=== PATIENT | female | born 1980 | race Caucasian/White ===

== ENCOUNTER 2018-03-23 18:24 | Emergency (ER) | payer MEDICAID, SELFPAY ==
[2018-03-23 18:25] VITALS: BP 142/72; PULSE 88; RESP 16; TEMP 36; O2SAT 98; BMI 36.5
[2018-03-23] MEDS: Metoclopramide 10 MG/2 ML Vial IV (19:10)
[2018-03-23] MEDS: 0.9% Normal Saline 1,000 ML 999 ML IV (19:10)
[2018-03-23] MEDS: Ketorolac 30 MG/ML Syringe IV (19:10)
[2018-03-23] MEDS: DiphenhydrAMINE 50 MG/ML Syringe IV (19:10)
--- NOTE | 2018-03-23 19:20 | RAD_ITS ---
STUDY: X-RAY - LUMBAR SPINE REASON FOR EXAM: Female, 37 years old. Low back pain TECHNIQUE: 3 view(s) of the lumbar spine were obtained. COMPARISON: 2010 FINDINGS: Pedicle screw fusion surgery has been placed at L4-L5 and S1 with laminectomy. Normal lumbar lordosis. There is no substantial scoliosis. There is a normal alignment of the vertebrae from L1 to L5. There has been surgical stabilization of a pars defect and grade 1 spondylolisthesis at L5/S1 Normal vertebral bodies and endplates. There is multi-level degenerative disc disease with multi-level disc space narrowing. There is no demonstrated fracture. The soft tissue structures are unremarkable. RAD/Lumbar Spine 2 or 3 Views IMPRESSION: Degenerative and postsurgical changes of the spine, as detailed above. Electronically Signed: Fuad Wilder MD at 19:33 EST , Service support ,
--- NOTE | 2018-03-23 19:42 | ED.DCSUM_ITS ---
- ER Visit Summary Date of Service: 03/23/18 Chief Complaint: Back pain History of Present Illness: The patient is a [address] Dennis. She reports that she has chronic lower back pain. Worsened today approximate 4 PM. She describes it is a sensation of pressure and muscle spasms. States pain started at worst 9-10 currently. Is worsened by movement. Is been unrelieved by her baclofen. She denies any numbness, tingling, or weakness that is new. No problems with her bowels or her bladder. No groin numbness. No recent trauma. No fall, MVA, or change in activity. She denies any fever or chills. Physical Examination: Vitals: Stable. Afebrile. General: A&O x 3. NAD. Cardiovascular exam: Regular rate and rhythm, no murmur, rub or gallop. Respiratory exam: Clear to auscultation bilaterally. No wheezes or stridor. Abdominal exam: Soft, nontender, nondistended, normal bowel sounds. No peritoneal signs. Back: Diffuse moderate tenderness to palpation over the lumbar spine and the paraspinous musculature in the lumbar region. No point tenderness. Negative str aight leg bilaterally. 5/5 DF, PF, EHL bilaterally. Normal sensation to light touch throughout. Extremity: No clubbing, cyanosis, or edema. Test Results: LS spine x-rays show her hardware to be intact. There is no acute disease. Emergency Department Course and Treatment: An [facility] report was obtained which show she had one prescription for opiates in the past year. She was treated with Toradol, Reglan, and Benadryl IV. She was given Percocet p.o. She feels much improved. Treatment Plan: Patient be discharged prescription for 10 Percocet. Instructed to follow-up with Dr. Mariano as soon as possible. Return to the emergency department for any worsening symptoms. Disposition: To home in improved and stable condition. Impression: 1. Acute on chronic back pain. This note was generated with [employer] dictation software. It may contain incorrect words, spelling, and punctuation that were not noted in review of the chart prior to signing ED Disposition - Plan for ED Patient: Disposition: Home or Assisted Living Instructions: ED Spasm Back No Trauma Prescriptions: Oxycodone HCl/Acetaminophen [Percocet 5/325] 1 tablet PO Q6H PRN PRN 3 Days #8 tablet PRN Reason: Pain Referrals: Homar Mariano [NON-STAFF] - As soon as possible
[2018-03-23] MEDS: oxyCODONE 5 MG Tablet 10 MG PO (20:07)
[2018-03-23 20:22] VITALS: PULSE 80; RESP 15; O2SAT 98
== END 2018-03-23 20:23 | disposition home or self-care (01) ==
LOC: ED 19:44
PROVIDERS: Emergency Provider Emergency Medicine; Family Provider Family Medicine; PCP Family Medicine
DX: M54.5 Low back pain (principal); G89.29 Other chronic pain; F43.10 Post-traumatic stress disorder, unspecified; F41.9 Anxiety disorder, unspecified; Z72.0 Tobacco use; Z79.899 Other long term (current) drug therapy
CPT/HCPCS: 72100; 96361; 96374; 96375; 99284; J7030; A4216

== ENCOUNTER 2018-03-25 20:04 | Observation (INO) | payer MEDICAID, SELFPAY ==
[2018-03-25 20:05] VITALS: BP 120/79; PULSE 85; RESP 17; TEMP 36.1; O2SAT 100; BMI 36.5
[2018-03-25] MEDS: 0.9% Normal Saline 1,000 ML 1000 ML IV (21:20)
[2018-03-25] MEDS: HYDROmorphone 1 MG/ML Syringe 0.5 MG IV (21:21)
[2018-03-25] MEDS: Ketorolac 30 MG/ML Syringe IV (21:21)
[2018-03-25] MEDS: Ondansetron 4 MG/2 ML Vial IV (21:21)
[2018-03-25 21:23] LABS: Absolute Lymphocyte Count 2.06 X10^3/ul (0.83-4.51); Absolute Neutrophil Count 2.1 X10^3/uL (2.0-7.7); Basophil# 0.04 X10^3/uL; Basophil% 0.8 % (0-1); Eosinophil# 0.34 X10^3/uL; Eosinophils% 6.7 % (0-5); Hematocrit 40.3 % (37-47); Hemoglobin 14.5 g/dl (12.0-15.0); Lymphocyte # 2.06 X10^3/ul (4.0); Lymphocyte % 40.9 % (19-41); Mean Corpuscular Hgb 30.4 pg (27.0-32.0); Mean Corpuscular Volume 84.5 fL (81-99); Mean Platelet Vol. 9.2 fl (6.2-12.0); Monocyte# 0.52 X10^3/uL; Monocyte% 10.3 % (0-10); Neutrophil # 2.07 X10^3/uL (2.7-7.7); Neutrophil % 41.1 % (47-70); Platelet Count 197 K/mm3 (150-450); RBC Distribution Width CV 13.2 % (11.6-14.6); RBC Distribution Width SD 39.9 fl (35.1-43.9); Red Blood Count 4.77 M/mm3 (4.2-5.4)
[2018-03-25 21:27] LABS: POSITIVE COUNT NO; POSITIVE DIFFERENTIAL NO; POSITIVE MORPHOLOGY NO
[2018-03-25 21:37] LABS: Anion Gap 10 (5-15); BUN 10 mg/dL (7-18); BUN/Creat Ratio 12.2 RATIO (10-20); CPK Total, Creatine Kinase 136 U/L (26-192); Calcium,Total 9.1 mg/dL (8.5-10.1); Chloride 107 mmol/L (98-107); Creatinine, Serum 0.82 mg/dL (0.55-1.02); EST Glomerular Filtration Rate 84 mL/min (>60); Est Glom Filt Rate - Afr Amer 102 mL/min (>60); Glucose 89 mg/dL (74-106); Potassium 4.1 mmol/L (3.5-5.1); Sodium Level 143 mmol/L (136-145)
[2018-03-25] MEDS: diazePAM 5 MG Tablet PO ×2 (22:42→23:13)
[2018-03-25] MEDS: HYDROmorphone 0.5 MG/0.5 ML SYRINGE IV (22:42)
--- NOTE | 2018-03-25 22:51 | ED.RN ---
2139 ALERTED THAT THE PT NEEDED TO USE THE BATHROOM,WENT TO HELP PT TO THE BATHROOM AND SHE STATED THAT I ALREADY PISSED THE BED.OBTAIN BATH WIPES, SCRUB PAPER PANTS AND A NEW SHEET.PT VERBALIZED THAT SHE WAS VERY EMBARRASSED AND THAT SHE DID NOT WANT TO MOVE. PT'S MOTHER STARTED TO ASSIST THE PT AFTER HER SPASM PASSED.PT STATED HOW EMBARRASSED SHE WAS.MOTHER STATED,I HAVE TOUCHED YOUR PEE BEFORE.MOTHER HELPED THE PT CLEAN UP SELF. PT MOTHER REQUESTED XXL PANTS.PAPER SCRUBS BROUGHT TO MOTHER.MD AWARE OF PT LOOSING VOIDING IN THE BED.
--- NOTE | 2018-03-25 23:29 | ED.RN ---
2300 checked on pt's confort and she stated that she was still having pain and i don't feel any better. md aware.
[2018-03-26] MEDS: Ondansetron 4 MG/2 ML Vial IV ×3 (00:28→17:33)
[2018-03-26] MEDS: Orphenadrine 60 MG/2 ML Ampul IM (00:28)
[2018-03-26] MEDS: HYDROmorphone 0.5 MG/0.5 ML SYRINGE IV ×3 (00:30→16:19)
--- NOTE | 2018-03-26 00:58 | ED.RN ---
0015 PT INCONTIENT OF URINE.PT SAT ON CHAIR AND CLEANED SELF UP THIS NURSE CHANGED THE BED LINEN.PT RADHA WITHOUT DISTRESS, OTHER THAN TO SAYI'M AM SO EMBARRASSED. MD AWARE OF INCONTINENCE AGAIN.
--- NOTE | 2018-03-26 01:46 | ED.DCSUM_ITS ---
- ER Visit Summary Date of Service: 03/26/18 Chief Complaint: Body cramps and spasm History of Present Illness: The patient is a 37 F with history of chronic back pain and muscle spasms. She is noted worsened muscle spasms of the past several days. She was seen here in the ED 2 days ago. Patient states the spasms and cramps were significantly worse tonight. She did urinate on herself when 1 of her spasm spells was resolving, then urinated again when trying to get to the bathroom. Patient has had prior paralysis and had back surgery 4 years ago. She has been following with pain management. She gets these episodes of severe spasms that usually resolve after a round of medication and she is able to go home. Patient has seen multiple neurologist. She states she had a MRI of her brain but did not show any lesions consistent with MS. She does tend to get a migraine before the onset of these episodes. Physical Examination: Vital signs are unremarkable. Patient is lying on her right side. She is tearful. Head neck examination unremarkable. Heart is regular rate and rhythm. Lungs sounds clear. Abdomen is soft and nontender. Back examination reveals palpable spasm in the lumbar paraspinals. Extremity examination reveals frequent bouts of spasms to her legs. When she gets the spasms she will get flexion at her knees along with dorsiflexion of her ankles and her toes will spread wide. Between episodes she has good strength. She has 2+ bilateral patellar reflexes. Test Results: CBC and chemistry studies normal. Magnesium normal. CK normal. Emergency Department Course and Treatment: Patient was initially given Dilaudid, Toradol, Zofran, and IV fluids. Due to continued pain she received Dilaudid and Valium. She did note slight improvement in the spasms with Valium and was given a second dose for a total of 10 mg. On repeat evaluation she was still having frequent episodes of spasm, although they were not as frequent as previously. She is given another dose of Norflex, Zofran, and Dilaudid. Repeat evaluation at this time, patient is lying on her back and resting much more comfortably. She still gets bouts of spasm but not nearly as frequently as when first evaluated. She has had 2 additional episodes here in the emergency room where she urinated on herself. Patient states that she had no sensation that she had to urinate. Nursing staff documents that the patient had told her that she was having spasms and did not want to get up to the bathroom when she went. Rectal tone is checked at this time and is normal. She has good patellar reflexes. At this time patient is still having bouts of spasm and is not able to go home. She has been in the emergency room for nearly 6 hours with repeated rounds of medication. I will speak with hospitalist regarding overnight observation for further medication and possible MRI of her back in the morning. Treatment Plan: [] Disposition: Admit Impression: Intractable muscle spasms This note was generated with [employer] dictation software. It may contain incorrect words, spelling, and punctuation that were not noted in review of the chart prior to signing ED Disposition - Plan for ED Patient: Referrals: Mukund Dennis MD [Primary Care Provider] -
--- NOTE | 2018-03-26 02:21 | HP.PCM_ITS ---
Problem List (1) Intractable back pain Status: Acute (2) Urinary incontinence Status: Acute Qualifiers: Urinary Incontinence type: unspecified incontinence Qualified Code(s): R32 - Unspecified urinary incontinence (3) Chronic back pain Status: Chronic Qualifiers: Back pain location: low back pain Back pain laterality: unspecified Sciatica presence: unspecified whether sciatica present Qualified Code(s): M54.5 - Low back pain; G89.29 - Other chronic pain (4) Neuropathy Status: Chronic (5) GERD (gastroesophageal reflux disease) Status: Chronic (6) ADHD Status: Chronic Qualifiers: Attention deficit-hyperactivity disorder type: unspecified Qualified Code(s): F90.9 - Attention-deficit hyperactivity disorder, unspecified type (7) Obesity (BMI 30-39.9) Status: Chronic History of Present Illness Date of Admission: 03/26/18 Chief Complaint: Intractable back pain, muscle spasms The patient is a 37 y/o F w/ PMHx: Chronic Back Pain secondary to history of remote fall 4 years ago prior w/ BL LE paraplegia w/ transfer to [facility] w/ surgery with hardware lumbar region with ambulation following w/ last MRI 2 years prior w/ neuropathy, GERD, ADD, Obesity seen 03/23/18 in the ED with more severe lumbar back pain at that time with increased lumbar pressure and muscle spasms, worsened by movement, unrelieved by her usual baclofen regimen with no paresthesias or new weaknesses and at that time no bowel or bladder changes with referral to pain management at the spine center who now represents to the [facility] ED on 03/26/18 with history of ongoing similar muscle spasms, lumbar discomfort and since last evaluation 4 episodes of urinary incontinence with again no extremity weakness, normal reflexes and normal rectal tone. Plain film of the lumbar spine 03/23/18 with degenerative and postsurgical changes with no acute findings. Work- up in the ED included T 96.8, heart rate 88, BP 120/79, respiratory rate 16, 98% on room air, CBC with WBC 5, hemoglobin 14.5, platelet 197 without left shift, unremarkable BMP, magnesium 2, total creatinine kinase 136. In the ED patient administered normal saline, Norflex, Zofran, Toradol, Dilaudid 0.5 mg IV x3, Valium 5 mg p.o. x2 with some improvement but ongoing discomfort and occasional spasms although lessened in severity. Past Medical History Past Medical History (Chronic Problems): Chronic Problems Chronic back pain (Chronic) Neuropathy (Chronic) GERD (gastroesophageal reflux disease) (Chronic) ADHD (Chronic) Obesity (BMI 30-39.9) (Chronic) Allergies acetaminophen [From Vicodin] Allergy (Verified 03/25/18 20:05) Anaphylaxis hydrocodone bitartrate [From Vicodin] Allergy (Verified 03/25/18 20:05) Anaphylaxis latex Allergy (Verified 03/25/18 20:05) Anaphylaxis morphine Allergy (Verified 03/25/18 20:05) Chest tightness CANNOT BREATH prednisone Allergy (Verified 03/25/18 20:05) Anaphylaxis fluoxetine HCl [From Prozac] Adverse Reaction (Verified 03/25/18 20:05) Other SUICIDAL IDEATIONS tramadol Adverse Reaction (Verified 03/25/18 20:05) Upset Stomach venlafaxine HCl [From Effexor] Adverse Reaction (Verified 03/25/18 20:05) Other SEIZURE Home Medications: Ambulatory Orders Medication Instructions Recorded Ranitidine [Zantac] 150 mg PO BID 05/29/16 Amitriptyline HCl 25 mg PO QHS 07/04/16 Baclofen [Lioresal] 10 mg PO TID PRN PRN 10/20/16 Diclofenac Sodium [Diclofenac 100 mg PO BID 10/20/16 Sodium ER] Methylphenidate HCl [Concerta] 18 mg PO DAILY 03/23/18 Pregabalin [Lyrica] 75 mg PO BID 03/23/18 Multivitamin with Minerals 1 each PO DAILY 03/25/18 [Multiple Vitamin] Surgical History: - - Hernia repair x4, cholecystectomy, lumbar back surgery with fusion and hardware, right wrist cyst removal, left foot cyst removal, hysterectomy with bilateral salpingo-oophorectomy, lateral tubal ligation, . Psychiatric History: Attn. deficit disorder [employer] History: therapeutic , - - History of cervical cancer status post hysterectomy with bilateral salpingo-oophorectomy. Lives: With Family - Patient currently living with her mother. Smoking Status: Current every day smoker - Currently smoking 1/4 ppd, prior was up to 2 ppd. Tobacco Use: Cigarettes Alcohol: None Drugs: None - *Family History Maternal History Items: - - Patient denies any marked maternal family history including heart disease, diabetes or cancer. Paternal History Items: - - Patient notes a paternal family history of cancer with history of heavy tobacco and alcohol usage concurrently, past. Review of Systems Constitutional: Reports: Malaise, Weakness, Fatigue. Denies: Chills, Fever, Weight Change HEENT: Denies: Head Aches, Sinus Congestion, Sinus Drainage Cardiovascular: Denies: Chest Pain, Palpitations Respiratory: Denies: Cough, Shortness of breath at rest, Sputum production Gastrointestinal: Denies: Abdominal Pain, Nausea, Vomiting Genitourinary: Denies: Dysuria Musculoskeletal: Reports: Back Pain, Leg Pain, - - Muscle spasms.. Denies: Joint Pain, Joint Tenderness Skin: Denies: Rash, Wounds Neurological: Denies: Numbness, Tingling, Focal weakness Psychiatric: Reports: - - ADD.. Denies: Anxiety, Depression, Homicidal Ideations, Suicidal Ideations Hematologic/ Lymphatic: Denies: Easy Bruising, Easy Bleeding VTE Information - Inpt Only VTE Present on Admission: No VTE Mechan Device Prophylaxis: SCD's VTE Pharm Prophylaxis ordered?: Yes Patient Problems: Active and Suspected Problems Intractable back pain (Acute) Urinary incontinence (Acute) Subjective: Laying in ED bed, fatigued, uncomfortable appearance, occasional muscle spasms ongoing during examination. Objective: Physical Examination: General: awake, alert, oriented x 3 and cooperative, laying in the ED bed, intermittently uncomfortable, ongoing intermittent spasms. Skin: normal color, turgor, no icterus, cyanosis. HEENT: AT/NC, EOMI, PERRLA, moderately dry MM, no carotid bruits or JVD noted. Lungs: CTA bilaterally, moderate effort, mild decrease BL bases, no rales, ronchi or wheezing. Heart: Regular rate and rhythm; no gallop, rub audible. Abdomen: soft, obese, NTTP, ND, normal BS, no HSM; her habitus makes examination difficult. Extremities: no cyanosis, clubbing, or edema, discomfort with palpation of the bilateral lumbar paraspinous regions, no obvious muscle spasms upon palpation of the lower extremities at that time. Neurological: patient awake, alert, oriented x 3; cognitive function intact; pupils equally reactive to light and accomodation; cranial nerves II-XII grossly normal, moving all 4 extremities, no focal deficits, strength moderately to severely globally decreased secondary to acute presentation. Psychiatric: affect appears fatigued, stressed, no acute evidence of depressive or anxiety feelings. - Physical Exam Vital Signs Temp Pulse Resp BP Pulse Ox 97.0 F L 85 17 120/79 100 03/25/18 20:05 03/25/18 20:05 03/25/18 20:05 03/25/18 20:05 03/25/18 20:05 Oxygen Delivery Method Room Air Weight: 240 lb Body Mass Index (BMI) 36.5 Laboratory Tests Past 24 Hrs 03/25/18 03/25/18 03/25/18 21:10 21:10 21:10 WBC 5.0 RBC 4.77 Hgb 14.5 Hct 40.3 MCV 84.5 MCH 30.4 MCHC 36.0 RDW 13.2 RDW Differential 39.9 Plt Count 197 MPV 9.2 Immature Gran % (Auto) 0.200 Neut % (Auto) 41.1 L Lymph % (Auto) 40.9 [place] % (Auto) 10.3 H Eos % (Auto) 6.7 H Baso % (Auto) 0.8 Absolute Neuts (auto) 2.1 Absolute Lymphs (auto) 2.06 Total Counted Not Reportable Sodium 143 Potassium 4.1 Chloride 107 Carbon Dioxide 26.0 Anion Gap 10 BUN 10 Creatinine 0.82 Estim Creat Clear Calc 96.60 Est GFR (MDRD) Af Amer 102 Est GFR (MDRD) Non-Af 84 BUN/Creatinine Ratio 12.2 Glucose 89 Calcium 9.1 Magnesium 2.0 Total Creatine Kinase 136 Assessment/Plan All Active Problems Intractable back pain (Acute) Urinary incontinence (Acute) Ovarian cyst (Acute) The patient is a 37 y/o F w/ PMHx: Chronic Back Pain secondary to history of remote fall 4 years ago prior w/ BL LE paraplegia w/ transfer to [facility] w/ surgery with hardware lumbar region with ambulation following w/ last MRI 2 years prior w/ neuropathy, GERD, ADD, Obesity seen 03/23/18 in the ED with more severe lumbar back pain at that time with increased lumbar pressure and muscle spasms, worsened by movement, unrelieved by her usual baclofen regimen with no paresthesias or new weaknesses and at that time no bowel or bladder changes with referral to pain management at the spine center who now represents to the [facility] ED on 03/26/18 with history of ongoing similar muscle spasms, lumbar discomfort and since last evaluation 4 episodes of urinary incontinence. (1) Acute on Chronic Intractable Lumbar Back Pain, Muscle Spasms w/ New Onset Urinary Incontinence w/ Chronic Neuropathy: Plain film of the lumbar spine 03/23/18 with degenerative and postsurgical changes with no acute findings. Will admit to MS, maintain on fall precautions, frequent positioning, po/IV pain regimen, flexeril, home baclofen and Lyrica regimen, scheduled Toradol, plan AM MRI lumbar spine, anti-emetics, bowel regimen. Will consult PT and OT for evaluation. (2) ADD: Continue home Concerta regimen. (3) Obesity: Weight loss and lifestyle changes encouraged. (4) GERD: Continue home ranitidine regimen. (5) Tobacco Abuse: Encouraged cessation, inpatient consultation per RT, NR if desired. (6) DVT Prophylaxis: SCDs, lovenox. Code Visit OBSV E&M: [id number] Initial observation care L3
[2018-03-26 02:42] VITALS: BP 112/62; PULSE 74; RESP 18; O2SAT 98
[2018-03-26 03:06] VITALS: BMI 38.2
[2018-03-26 03:09] VITALS: BMI 38.3
[2018-03-26 03:19] VITALS: BP 132/73; PULSE 70; RESP 18; TEMP 36.6; O2SAT 98
[2018-03-26] MEDS: Ketorolac 30 MG/ML Syringe IV ×3 (05:22→21:42)
--- NOTE | 2018-03-26 05:55 | MRI_ITS ---
STUDY: MRI LUMBAR SPINE WITH AND WITHOUT CONTRAST REASON FOR EXAM: Female, 37 years old. Low back pain. Incontinence. Muscle spasms. TECHNIQUE: Standardized fat and water weighted pulse sequences were obtained in the sagittal and axial planes. Gadavist 10 IV was administered for the contrast portion of the examination. COMPARISON: 07/10/2016. FINDINGS: T11-T12: (Sagittal only). Normal endplates. Normal disc height, hydration and morphology. No ventral extradural defect. Normal central canal and bilateral intervertebral neural foramina. T12-L1: (Sagittal only). Normal endplates. Normal disc height, hydration and morphology. No ventral extradural defect. Normal central canal and bilateral intervertebral neural foramina. Normal lumbar lordosis. There is no substantial scoliosis. Normal conus medullaris that terminates at the lower T12 vertebral body level. L1-2: Normal endplates. Normal disc height, hydration and morphology. Normal bilateral facet joints. Normal central canal and bilateral lateral recesses. Normal bilateral intervertebral neural foramina. L2-3: Normal endplates. Normal disc height, hydration and morphology. Normal bilateral facet joints. Normal central canal and bilateral lateral recesses. Normal bilateral intervertebral neural foramina. L3-4: Normal endplates. Normal disc height, hydration and morphology. Normal bilateral facet joints. Normal central canal and bilateral lateral recesses. Normal bilateral intervertebral neural foramina. L4-5: Normal endplates. Mild disc space height narrowing. Pedicular screws and rods from previous posterior decompression and fusion. Postsurgical absence of the spinous processes and lamina. Normal central canal and bilateral intervertebral neural foramina. L5-S1: Mild Modic type II degenerative vertebral marrow fatty changes underneath the vertebral endplates. Moderately pronounced disc space height narrowing. Grade 1 anterolisthesis of L5 on S1. Pedicular screws and rods from previous posterior decompression and fusion. Normal central canal and bilateral intervertebral neural foramina. No enhancing lesions intradural lesion extradurally. Normal visualized sacral ala. Normal visualized paraspinous soft tissue structures. MRI/Spine Lumbar W/WO Contrast IMPRESSION: 1. No MRI evidence of lumbar extruded disc fragment, spinal stenosis or nerve root displacement. 2. Grade 1 anterolisthesis of L5 on S1 with moderately pronounced disc space height narrowing. 3. Postsurgical decompression and fusion using pedicular screws and rods from L4 down to S1. 4. No interval change when compared to 07/10/2016. Electronically Signed: Edwar Gtz MD at 10:27 EST , Service support ,
[2018-03-26 06:20] LABS: Absolute Lymphocyte Count 0.97 X10^3/ul (0.83-4.51); Absolute Neutrophil Count 2.9 X10^3/uL (2.0-7.7); Basophil# 0.01 X10^3/uL; Basophil% 0.2 % (0-1); Eosinophil# 0.09 X10^3/uL; Hematocrit 37.7 % (37-47); Hemoglobin 12.4 g/dl (12.0-15.0); Lymphocyte # 0.97 X10^3/ul (4.0); Lymphocyte % 21.8 % (19-41); Mean Corp Hgb Conc 32.9 g/gl (32-36); Mean Corpuscular Hgb 28.4 pg (27.0-32.0); Mean Corpuscular Volume 86.3 fL (81-99); Mean Platelet Vol. 9.3 fl (6.2-12.0); Monocyte# 0.45 X10^3/uL; Monocyte% 10.1 % (0-10); Neutrophil # 2.92 X10^3/uL (2.7-7.7); Neutrophil % 65.9 % (47-70); Platelet Count 173 K/mm3 (150-450); RBC Distribution Width CV 13.1 % (11.6-14.6); RBC Distribution Width SD 40.1 fl (35.1-43.9); Red Blood Count 4.37 M/mm3 (4.2-5.4); White Blood Count 4.4 K/mm3 (4.4-11.0)
[2018-03-26 06:21] LABS: POSITIVE COUNT NO; POSITIVE DIFFERENTIAL NO; POSITIVE MORPHOLOGY NO
[2018-03-26 06:43] LABS: Anion Gap 8 (5-15); BUN 9 mg/dL (7-18); BUN/Creat Ratio 10.9 RATIO (10-20); Calcium,Total 8.2 mg/dL (8.5-10.1); Chloride 110 mmol/L (98-107); Creatinine, Serum 0.82 mg/dL (0.55-1.02); EST Glomerular Filtration Rate 84 mL/min (>60); Est Glom Filt Rate - Afr Amer 102 mL/min (>60); Estimated Creatinine Clearance 93.12 ml/min; Glucose 75 mg/dL (74-106); Potassium 3.7 mmol/L (3.5-5.1); Sodium Level 143 mmol/L (136-145)
[2018-03-26 07:27] VITALS: O2SAT 96
[2018-03-26 09:00] VITALS: BP 109/63; PULSE 69; RESP 18; TEMP 36.8; O2SAT 98
[2018-03-26] MEDS: Enoxaparin 40 MG/0.4 ML Syringe SC (09:33)
[2018-03-26] MEDS: Famotidine 20 MG Tablet PO ×2 (09:34→21:41)
[2018-03-26] MEDS: 0.9% NaCl Peripheral Flush Adult/Peds IV ×5 (09:35→21:47)
[2018-03-26] MEDS: Pregabalin 75 MG Capsule PO ×2 (09:48→21:41)
[2018-03-26] MEDS: oxyCODONE 5 MG Tablet PO (11:08)
[2018-03-26] MEDS: Baclofen 10 MG Tablet PO (11:08)
[2018-03-26] MEDS: 0.9% Normal Saline 1,000 ML 125 ML IV (11:09)
--- NOTE | 2018-03-26 12:45 | NURSING ---
PT RESTING QUIETLY IN BED, EYES CLOSED, RESP EASY
--- NOTE | 2018-03-26 12:57 | CHAPLAIN ---
Type of Pastoral Visit _x__ Initial Visit ___ Follow-up Visit ___ On-call Visit ___ General Patient Visit ___ Spiritual Assessment ___ Family Conference ___ Bereavement ___ Rapid Response ___ Code Blue ___ Other (describe below) Pastoral Care Referral From _x__ Patient ___ Family ___ Nurse ___ Physician ___ [employer] Water Plant Operator ___ Admission Discharge Rn ___ Other (describe below) Sacrament/Intervention _x__ Active listening ___ Anointing ___ Sikh ___ Bereavement ___ Communion ___ Ariana exploration ___ ___ Life review _x__ Prayer ___ Reconciliation ___ Sacrament of Sick ___ Supportive presence ___ Wedding ___ Other (describe below) Pastoral Comments patient says she has had pain for 4 years and hopes that someone can get to the bottom of issue; pt says while she is in hospital she misses her three children who are young teens now
--- NOTE | 2018-03-26 12:59 | PCM.PN.HOSP ---
Patient Problems: Active and Suspected Problems Intractable back pain (Acute) Urinary incontinence (Acute) Subjective: Patient seen and examined. She was admitted with a complaint of intractable lower back pain and new onset bladder and bowel incontinence. Patient has a history of chronic back pain due to a remote fall about 4 years ago which resulted in bilateral lower extremity paraplegia and she has had surgery with placement of hardware in the lumbar region. Started having intractable lumbar pressure and spasms as well as pain which is unrelieved by usual baclofen. He was seen in the ED on 03/23/2018 with the symptoms but had no new onset weakness or paresthesias or any bowel or bladder changes at that time. She was therefore referred to pain management at the spine center then. She presented again on 03/26/2018 with history of same intractable pain and ongoing symptoms of muscle spasms and lumbar discomfort. She had normal rectal tone on admission and normal reflexes and no lower extremity weakness. X-rays of the lumbar spine which have been done on 03/23/2018 showed degenerative and postsurgical changes with no acute findings. She was admitted for intractable back pain and new onset bowel and bladder incontinence. Patient seen after she had MRI this morning. She still complained of spasms in her lower extremities and was still having bowel and bladder incontinence. She had weakness has been progressive and she did not have any increased paresthesia in her lower extremities. She denied any fever or chills, palpitations, chest or abdominal pain. Review of systems otherwise negative. Labs and vitals reviewed. Vitals/I&O's: Vital Signs Temp Pulse Resp BP Pulse Ox 98.3 F 69 18 109/63 98 03/26/18 09:00 03/26/18 09:00 03/26/18 09:00 03/26/18 09:00 03/26/18 09:00 Oxygen Delivery Method Room Air Weight: 244 lb 4.8 oz Body Mass Index (BMI) 38.2 Intake and Output for Last 24 Hours 03/24/18 03/25/18 03/26/18 23:59 23:59 23:59 Intake Total 1464 / 1464 Balance 1464 / 1464 General: Alert, Oriented x3, Cooperative, - - looked uncomfortable due to the LE spasms HEENT: Atraumatic, PERRLA, EOMI, Normocephalic Oral: Moist Mucosa Neck: Supple, No JVD, Negative Carotid Bruits Lungs: Clear to auscultation, Normal air movement, No rhonchi, No wheeze, No rales Cardiovascular: Regular rate, Regular Rhythm, Normal S1, Normal S2, No murmurs Abdomen: Bowel Sounds Present, Soft, Non Tender, Non-Distended, No Hepato-splenomegaly Extremities: No clubbing, No cyanosis, No edema, No Calf Tenderness Skin: No rashes, No breakdown Musculoskeletal: No Tenderness to Palpation of Joints or Extremities, No Muscle Wasting Lymphatic: No Cervical, Supraclavicular, or Inguinal Adenopathy Neurological: Cranial nerves II-XII grossly intact, - - severe spams of LE muscles, power 4/5 in LEs, internal rotation of right foot. Psych/Mental Status: Normal Affect, Appropriate, Alert and oriented to time, place, person, mood and affect Laboratory Results 03/25/18 21:10: WBC 5.0, RBC 4.77, Hgb 14.5, Hct 40.3, MCV 84.5, MCH 30.4, MCHC 36.0, RDW 13.2, RDW Differential 39.9, Plt Count 197, MPV 9.2, Immature Gran % (Auto) 0.200, Neut % (Auto) 41.1 L, Lymph % (Auto) 40.9, [place] % (Auto) 10.3 H, Eos % (Auto) 6.7 H, Baso % (Auto) 0.8, Absolute Neuts (auto) 2.1, Absolute Lymphs (auto) 2.06, Total Counted Not Reportable 03/25/18 21:10: Sodium 143, Potassium 4.1, Chloride 107, Carbon Dioxide 26.0, Anion Gap 10, BUN 10, Creatinine 0.82, Estim Creat Clear Calc 96.60, Est GFR (MDRD) Af Amer 102, Est GFR (MDRD) Non-Af 84, BUN/Creatinine Ratio 12.2, Glucose 89, Calcium 9.1, Total Creatine Kinase 136 03/25/18 21:10: Magnesium 2.0 03/26/18 05:44: Sodium 143, Potassium 3.7, Chloride 110 H, Carbon Dioxide 25.0, Anion Gap 8, BUN 9, Creatinine 0.82, Estim Creat Clear Calc 93.12, Est GFR (MDRD) Af Amer 102, Est GFR (MDRD) Non-Af 84, BUN/Creatinine Ratio 10.9, Glucose 75, Calcium 8.2 L 03/26/18 05:44: WBC 4.4, RBC 4.37, Hgb 12.4, Hct 37.7, MCV 86.3, MCH 28.4, MCHC 32.9, RDW 13.1, RDW Differential 40.1, Plt Count 173, MPV 9.3, Immature Gran % (Auto) 0.000, Neut % (Auto) 65.9, Lymph % (Auto) 21.8, Creek % (Auto) 10.1 H, Eos % (Auto) 2.0, Baso % (Auto) 0.2, Absolute Neuts (auto) 2.9, Absolute Lymphs (auto) 0.97, Total Counted Not Reportable Diagnostic Data Lumbar Spine MRI 03/26/18 05:55 IMPRESSION: 1. No MRI evidence of lumbar extruded disc fragment, spinal stenosis or nerve root displacement. 2. Grade 1 anterolisthesis of L5 on S1 with moderately pronounced disc space height narrowing. 3. Postsurgical decompression and fusion using pedicular screws and rods from L4 down to S1. 4. No interval change when compared to 07/10/2016. Electronically Signed: Edwar Gtz MD at 10:27 EST , Service support , Current Medications Al Hydroxide/Mg Hydroxide (Mylanta Ii) 30 ml PO Q6H PRN PRN PRN Reason: Gastric burning Amitriptyline HCl (Elavil) 25 mg PO QHS [facility] Baclofen (Lioresal) 10 mg PO TID PRN PRN PRN Reason: SPASMS Last Admin: 03/26/18 11:08 Dose: 10 mg Cyclobenzaprine HCl (Flexeril) 10 mg PO TID [facility] Last Admin: 03/26/18 05:20 Dose: 10 mg Enoxaparin Sodium (Lovenox) 40 mg SC DAILY@1000 [facility] Last Admin: 03/26/18 09:33 Dose: 40 mg Famotidine (Pepcid) 20 mg PO BID [facility] Last Admin: 03/26/18 09:34 Dose: 20 mg Hydralazine HCl (Apresoline Iv) 10 mg IV Q4H PRN PRN PRN Reason: SBP > 160 Hydromorphone HCl (Dilaudid Inj) 0.5 - 1 mg IV Q3H PRN PRN PRN Reason: SEVERE PAIN (6-10/10) Last Admin: 03/26/18 09:34 Dose: 0.5 mg Sodium Chloride () 1,000 mls @ 125 mls/hr IV .Q8H ARJUN Last Admin: 03/26/18 11:09 Dose: 125 mls/hr Ketorolac Tromethamine (Toradol) 30 mg IV Q8 [facility] Stop: 03/27/18 14:01 Last Admin: 03/26/18 05:22 Dose: 30 mg Lorazepam (Ativan) 1 mg IV Q4H PRN PRN PRN Reason: severe muscle spasms Magnesium Hydroxide (Milk Of Magnesia) 30 ml PO DAILY PRN PRN PRN Reason: Constipation Nicotine (Nicoderm Cq (Pbkc)) 14 mg TRANSDERM. DAILY [facility] Last Admin: 03/26/18 09:34 Dose: 14 mg Ondansetron HCl (Zofran) 4 mg IV Q8H PRN PRN PRN Reason: NAUSEA/VOMITING Last Admin: 03/26/18 09:35 Dose: 4 mg Oxycodone HCl (Oxyir) 5 - 10 mg PO Q4H PRN PRN PRN Reason: SEVERE PAIN (6-10/10) Last Admin: 03/26/18 11:08 Dose: 10 mg Pregabalin (Lyrica) 75 mg PO BID [facility] Last Admin: 03/26/18 09:48 Dose: 75 mg Sodium Chloride () 5 - 15 ml IV UD PRN PRN Reason: SALINE FLUSH Last Admin: 03/26/18 09:35 Dose: 10 ml Temazepam (Restoril) 15 mg PO QHS PRN PRN PRN Reason: insomnia Medical Necessity - Tobacco Use Smoking Status: Current every day smoker Tobacco Use: Cigarettes Assessment/Plan All Active Problems Intractable back pain (Acute) Urinary incontinence (Acute) Ovarian cyst (Acute) 1. Acute on chronic back pain with new onset bladder and bowel incontinence still having back pain and bladder and bowel incontinence. She is also having spasms on baclofen xray showed degenerative and postsurgical changes with no acute findings. fall precautions on flexeril, baclofen and lyrica MRI showed no evidence of lumbar extruded disc fragment, spinal stenosis or nerve root displacement. Grade 1 anterolisthesis of L5 on S1 with moderately pronounced disc space height narrowing, post surgical decompression and fusion using pedicular screws and rods down from L4 down to S1. will get neurology consult in light of new onset bladder and bowel incontinence PT/OT on board 2. ADD: on concerta 3. GERD: on ranitidine. 4. Nicotine abuse: encourage cessation. 5. DVT prophylaxis: lovenox Code Visit OBSV E&M: [id number] Subsequent observation care L3
--- NOTE | 2018-03-26 13:05 | PN_ITS ---
Patient Problems: Active and Suspected Problems Intractable back pain (Acute) Urinary incontinence (Acute) Subjective: Patient seen and examined. She was admitted with a complaint of intractable lower back pain and new onset bladder and bowel incontinence. Patient has a history of chronic back pain due to a remote fall about 4 years ago which resulted in bilateral lower extremity paraplegia and she has had surgery with placement of hardware in the lumbar region. Started having intractable lumbar pressure and spasms as well as pain which is unrelieved by usual baclofen. He was seen in the ED on 03/23/2018 with the symptoms but had no new onset weakness or paresthesias or any bowel or bladder changes at that time. She was therefore referred to pain management at the spine center then. She presented again on 03/26/2018 with history of same intractable pain and ongoing symptoms of muscle spasms and lumbar discomfort. She had normal rectal tone on admission and normal reflexes and no lower extremity weakness. X-rays of the lumbar spine which have been done on 03/23/2018 showed degenerative and postsurgical changes w ith no acute findings. She was admitted for intractable back pain and new onset bowel and bladder incontinence. Patient seen after she had MRI this morning. She still complained of spasms in her lower extremities and was still having bowel and bladder incontinence. She had weakness has been progressive and she did not have any increased paresthesia in her lower extremities. She denied any fever or chills, palpitations, chest or abdominal pain. Review of systems otherwise negative. Labs and vitals reviewed. Vitals/I&O's: Vital Signs Temp Pulse Resp BP Pulse Ox 98.3 F 69 18 109/63 98 03/26/18 09:00 03/26/18 09:00 03/26/18 09:00 03/26/18 09:00 03/26/18 09:00 Oxygen Delivery Method Room Air Weight: 244 lb 4.8 oz Body Mass Index (BMI) 38.2 Intake and Output for Last 24 Hours 03/24/18 03/25/18 03/26/18 23:59 23:59 23:59 Intake Total 1464 / 1464 Balance 1464 / 1464 General: Alert, Oriented x3, Cooperative, - - looked uncomfortable due to the LE spasms HEENT: Atraumatic, PERRLA, EOMI, Normocephalic Oral: Moist Mucosa Neck: Supple, No JVD, Negative Carotid Bruits Lungs: Clear to auscultation, Normal air movement, No rhonchi, No wheeze, No rales Cardiovascular: Regular rate, Regular Rhythm, Normal S1, Normal S2, No murmurs Abdomen: Bowel Sounds Present, Soft, Non Tender, Non-Distended, No Hepato- splenomegaly Extremities: No clubbing, No cyanosis, No edema, No Calf Tenderness Skin: No rashes, No breakdown Musculoskeletal: No Tenderness to Palpation of Joints or Extremities, No Muscle Wasting Lymphatic: No Cervical, Supraclavicular, or Inguinal Adenopathy Neurological: Cranial nerves II-XII grossly intact, - - severe spams of LE muscles, power 4/5 in LEs, internal rotation of right foot. Psych/Mental Status: Normal Affect, Appropriate, Alert and oriented to time, place, person, mood and affect Laboratory Results 03/25/18 21:10: WBC 5.0, RBC 4.77, Hgb 14.5, Hct 40.3, MCV 84.5, MCH 30.4, MCHC 36.0, RDW 13.2, RDW Differential 39.9, Plt Count 197, MPV 9.2, Immature Gran % (Auto) 0.200, Neut % (Auto) 41.1 L, Lymph % (Auto) 40.9, [place] % (Auto) 10.3 H, Eos % (Auto) 6.7 H, Baso % (Auto) 0.8, Absolute Neuts (auto) 2.1, Absolute Lymphs (auto) 2.06, Total Counted Not Reportable 03/25/18 21:10: Sodium 143, Potassium 4.1, Chloride 107, Carbon Dioxide 26.0, Anion Gap 10, BUN 10, Creatinine 0.82, Estim Creat Clear Calc 96.60, Est GFR (MDRD) Af Amer 102, Est GFR (MDRD) Non-Af 84, BUN/Creatinine Ratio 12.2, Glucose 89, Calcium 9.1, Total Creatine Kinase 136 03/25/18 21:10: Magnesium 2.0 03/26/18 05:44: Sodium 143, Potassium 3.7, Chloride 110 H, Carbon Dioxide 25.0, Anion Gap 8, BUN 9, Creatinine 0.82, Estim Creat Clear Calc 93.12, Est GFR (MDRD) Af Amer 102, Est GFR (MDRD) Non-Af 84, BUN/Creatinine Ratio 10.9, Glucose 75, Calcium 8.2 L 03/26/18 05:44: WBC 4.4, RBC 4.37, Hgb 12.4, Hct 37.7, MCV 86.3, MCH 28.4, MCHC 32.9, RDW 13.1, RDW Differential 40.1, Plt Count 173, MPV 9.3, Immature Gran % (Auto) 0.000, Neut % (Auto) 65.9, Lymph % (Auto) 21.8, [place] % (Auto) 10.1 H, Eos % (Auto) 2.0, Baso % (Auto) 0.2, Absolute Neuts (auto) 2.9, Absolute Lymphs (auto) 0.97, Total Counted Not Reportable Diagnostic Data Lumbar Spine MRI 03/26/18 05:55 IMPRESSION: 1. No MRI evidence of lumbar extruded disc fragment, spinal stenosis or nerve root displacement. 2. Grade 1 anterolisthesis of L5 on S1 with moderately pronounced disc space height narrowing. 3. Postsurgical decompression and fusion using pedicular screws and rods from L4 down to S1. 4. No interval change when compared to 07/10/2016. Electronically Signed: Edwar Gtz MD at 10:27 EST , Service support , Current Medications Al Hydroxide/Mg Hydroxide (Mylanta Ii) 30 ml PO Q6H PRN PRN PRN Reason: Gastric burning Amitriptyline HCl (Elavil) 25 mg PO QHS [facility] Baclofen (Lioresal) 10 mg PO TID PRN PRN PRN Reason: SPASMS Last Admin: 03/26/18 11:08 Dose: 10 mg Cyclobenzaprine HCl (Flexeril) 10 mg PO TID [facility] Last Admin: 03/26/18 05:20 Dose: 10 mg Enoxaparin Sodium (Lovenox) 40 mg SC DAILY@1000 [facility] Last Admin: 03/26/18 09:33 Dose: 40 mg Famotidine (Pepcid) 20 mg PO BID [facility] Last Admin: 03/26/18 09:34 Dose: 20 mg Hydralazine HCl (Apresoline Iv) 10 mg IV Q4H PRN PRN PRN Reason: SBP > 160 Hydromorphone HCl (Dilaudid Inj) 0.5 - 1 mg IV Q3H PRN PRN PRN Reason: SEVERE PAIN (6-10/10) Last Admin: 03/26/18 09:34 Dose: 0.5 mg Sodium Chloride () 1,000 mls @ 125 mls/hr IV .Q8H ARJUN Last Admin: 03/26/18 11:09 Dose: 125 mls/hr Ketorolac Tromethamine (Toradol) 30 mg IV Q8 [facility] Stop: 03/27/18 14:01 Last Admin: 03/26/18 05:22 Dose: 30 mg Lorazepam (Ativan) 1 mg IV Q4H PRN PRN PRN Reason: severe muscle spasms Magnesium Hydroxide (Milk Of Magnesia) 30 ml PO DAILY PRN PRN PRN Reason: Constipation Nicotine (Nicoderm Cq (Pbkc)) 14 mg TRANSDERM. DAILY [facility] Last Admin: 03/26/18 09:34 Dose: 14 mg Ondansetron HCl (Zofran) 4 mg IV Q8H PRN PRN PRN Reason: NAUSEA/VOMITING Last Admin: 03/26/18 09:35 Dose: 4 mg Oxycodone HCl (Oxyir) 5 - 10 mg PO Q4H PRN PRN PRN Reason: SEVERE PAIN (6-10/10) Last Admin: 03/26/18 11:08 Dose: 10 mg Pregabalin (Lyrica) 75 mg PO BID [facility] Last Admin: 03/26/18 09:48 Dose: 75 mg Sodium Chloride () 5 - 15 ml IV UD PRN PRN Reason: SALINE FLUSH Last Admin: 03/26/18 09:35 Dose: 10 ml Temazepam (Restoril) 15 mg PO QHS PRN PRN PRN Reason: insomnia Medical Necessity - Tobacco Use Smoking Status: Current every day smoker Tobacco Use: Cigarettes Assessment/Plan All Active Problems Intractable back pain (Acute) Urinary incontinence (Acute) Ovarian cyst (Acute) 1. Acute on chronic back pain with new onset bladder and bowel incontinence * still having back pain and bladder and bowel incontinence. She is also having spasms * on baclofen * xray showed degenerative and postsurgical changes with no acute findings. * fall precautions * on flexeril, baclofen and lyrica * MRI showed no evidence of lumbar extruded disc fragment, spinal stenosis or nerve root displacement. Grade 1 anterolisthesis of L5 on S1 with moderately pronounced disc space height narrowing, post surgical decompression and fusion using pedicular screws and rods down from L4 down to S1. * will get neurology consult in light of new onset bladder and bowel incontinence * PT/OT on board 2. ADD: on concerta 3. GERD: on ranitidine. 4. Nicotine abuse: encourage cessation. 5. DVT prophylaxis: lovenox Code Visit OBSV E&M: [id number] Subsequent observation care L3
[2018-03-26 13:21] VITALS: BP 106/65; PULSE 64; RESP 18; TEMP 36.5; O2SAT 96
--- NOTE | 2018-03-26 13:54 | PCM.CONS.GEN ---
Reason for Consult Date of Consultation: 03/26/18 Reason for Consultation: Incontinence History of Present Illness: The patient is a 37 year old F with a history of lumbar laminectomy, migraines and intermittent spasms who presented with increased spasms associated apparently with urinary and possibly bowel incontinence. She says she came to the emergency department on Friday for similar symptoms which resolved she went home. She was okay the next day, then last night around 5 PM she started experiencing symptoms again affecting her legs. She says there is no triggers, no new medications, changes or medications or recent illnesses. She denies stress. She describes muscle tightness in her legs which is severe, and is preceded by headaches usually. She takes Elavil at bedtime for headaches, she also sees Dr. Mariano and pain management and takes Lyrica as well as NSAIDs. During my evaluation, she did experience sudden severe contraction of both lower extremities with out contractions of any other muscle groups in her upper extremities and she appeared to be in significant discomfort due to this. Symptoms slowly abated over several minutes. Nursing was present and also checked for her post void residual which was less than 200 cc. per admit note:The patient is a 37 y/o F w/ PMHx: Chronic Back Pain secondary to history of remote fall 4 years ago prior w/ BL LE paraplegia w/ transfer to [facility] w/ surgery with hardware lumbar region with ambulation following w/ last MRI 2 years prior w/ neuropathy, GERD, ADD, Obesity seen 03/23/18 in the ED with more severe lumbar back pain at that time with increased lumbar pressure and muscle spasms, worsened by movement, unrelieved by her usual baclofen regimen with no paresthesias or new weaknesses and at that time no bowel or bladder changes with referral to pain management at the spine center who now represents to the [facility] ED on 03/26/18 with history of ongoing similar muscle spasms, lumbar discomfort and since last evaluation 4 episodes of urinary incontinence with again no extremity weakness, normal reflexes and normal rectal tone. Plain film of the lumbar spine 03/23/18 with degenerative and postsurgical changes with no acute findings. Work-up in the ED included T 96.8, heart rate 88, BP 120/79, respiratory rate 16, 98% on room air, CBC with WBC 5, hemoglobin 14.5, platelet 197 without left shift, unremarkable BMP, magnesium 2, total creatinine kinase 136. In the ED patient administered normal saline, Norflex, Zofran, Toradol, Dilaudid 0.5 mg IV x3, Valium 5 mg p.o. x2 with some improvement but ongoing discomfort and occasional spasms although lessened in severity. Past Medical History Past Medical History (Chronic Problems): Chronic Problems Chronic back pain (Chronic) Neuropathy (Chronic) GERD (gastroesophageal reflux disease) (Chronic) ADHD (Chronic) Obesity (BMI 30-39.9) (Chronic) Allergies acetaminophen [From Vicodin] Allergy (Verified 03/25/18 20:05) Anaphylaxis hydrocodone bitartrate [From Vicodin] Allergy (Verified 03/25/18 20:05) Anaphylaxis latex Allergy (Verified 03/25/18 20:05) Anaphylaxis morphine Allergy (Verified 03/25/18 20:05) Chest tightness CANNOT BREATH prednisone Allergy (Verified 03/25/18 20:05) Anaphylaxis fluoxetine HCl [From Prozac] Adverse Reaction (Verified 03/25/18 20:05) Other SUICIDAL IDEATIONS tramadol Adverse Reaction (Verified 03/25/18 20:05) Upset Stomach venlafaxine HCl [From Effexor] Adverse Reaction (Verified 03/25/18 20:05) Other SEIZURE Home Medications: Ambulatory Orders Medication Instructions Recorded Ranitidine [Zantac] 150 mg PO BID 05/29/16 Amitriptyline HCl 25 mg PO QHS 07/04/16 Baclofen [Lioresal] 10 mg PO TID PRN PRN 10/20/16 Diclofenac Sodium [Diclofenac 100 mg PO BID 10/20/16 Sodium ER] Methylphenidate HCl [Concerta] 18 mg PO DAILY 03/23/18 Pregabalin [Lyrica] 75 mg PO BID 03/23/18 Multivitamin with Minerals 1 each PO DAILY 03/25/18 [Multiple Vitamin] Surgical History: - - Hernia repair x4, cholecystectomy, lumbar back surgery with fusion and hardware, right wrist cyst removal, left foot cyst removal, hysterectomy with bilateral salpingo-oophorectomy, lateral tubal ligation, . Psychiatric History: Attn. deficit disorder [employer] History: therapeutic , - - History of cervical cancer status post hysterectomy with bilateral salpingo-oophorectomy. Lives: With Family - Patient currently living with her mother. Smoking Status: Current every day smoker Tobacco Use: Cigarettes Alcohol: None Drugs: None - *Family History Maternal History Items: - - Patient denies any marked maternal family history including heart disease, diabetes or cancer. Paternal History Items: - - Patient notes a paternal family history of cancer with history of heavy tobacco and alcohol usage concurrently, past. Review of Systems Musculoskeletal: Reports: Foot Pain, Leg Pain Patient Problems: Active and Suspected Problems Intractable back pain (Acute) Urinary incontinence (Acute) - Physical Exam General: Alert, Oriented x3, Cooperative, No apparent distress HEENT: TIANNA, EOMI Neurological: Cranial nerves II-XII grossly intact, Motor Exam 5/5 strength throughout, - - As noted above she had sudden forceful contracture of all muscle groups in her lower extremities without any effect on her upper extremities. On palpation there appear to be active resistance to movement in her lower extremities however upper extremities were subtle she remained alert and oriented but she did appear to be in significant discomfort. Vital Signs Temp Pulse Resp BP Pulse Ox 36.5 C L 64 18 106/65 96 03/26/18 13:21 03/26/18 13:21 03/26/18 13:21 03/26/18 13:21 03/26/18 13:21 Oxygen Delivery Method Room Air Weight: 110.813 kg Body Mass Index (BMI) 38.2 Intake and Output for Last 24 Hours 03/24/18 03/25/18 03/26/18 23:59 23:59 23:59 Intake Total 1464 / 1464 Balance 1464 / 1464 Laboratory Tests Past 24 Hrs 03/25/18 03/25/18 03/25/18 21:10 21:10 21:10 WBC 5.0 RBC 4.77 Hgb 14.5 Hct 40.3 MCV 84.5 MCH 30.4 MCHC 36.0 RDW 13.2 RDW Differential 39.9 Plt Count 197 MPV 9.2 Immature Gran % (Auto) 0.200 Neut % (Auto) 41.1 L Lymph % (Auto) 40.9 [place] % (Auto) 10.3 H Eos % (Auto) 6.7 H Baso % (Auto) 0.8 Absolute Neuts (auto) 2.1 Absolute Lymphs (auto) 2.06 Total Counted Not Reportable Sodium 143 Potassium 4.1 Chloride 107 Carbon Dioxide 26.0 Anion Gap 10 BUN 10 Creatinine 0.82 Estim Creat Clear Calc 96.60 Est GFR (MDRD) Af Amer 102 Est GFR (MDRD) Non-Af 84 BUN/Creatinine Ratio 12.2 Glucose 89 Calcium 9.1 Magnesium 2.0 Total Creatine Kinase 136 03/26/18 03/26/18 05:44 05:44 WBC 4.4 RBC 4.37 Hgb 12.4 Hct 37.7 MCV 86.3 MCH 28.4 MCHC 32.9 RDW 13.1 RDW Differential 40.1 Plt Count 173 MPV 9.3 Immature Gran % (Auto) 0.000 Neut % (Auto) 65.9 Lymph % (Auto) 21.8 [place] % (Auto) 10.1 H Eos % (Auto) 2.0 Baso % (Auto) 0.2 Absolute Neuts (auto) 2.9 Absolute Lymphs (auto) 0.97 Total Counted Not Reportable Sodium 143 Potassium 3.7 Chloride 110 H Carbon Dioxide 25.0 Anion Gap 8 BUN 9 Creatinine 0.82 Estim Creat Clear Calc 93.12 Est GFR (MDRD) Af Amer 102 Est GFR (MDRD) Non-Af 84 BUN/Creatinine Ratio 10.9 Glucose 75 Calcium 8.2 L Magnesium Total Creatine Kinase mri l/s spine reviewed, no evidence of comprise of neural structures Assessment/Plan All Active Problems Intractable back pain (Acute) Urinary incontinence (Acute) Ovarian cyst (Acute) #1 sudden muscle contractions: This does not appear to be physiologic due to the absence of effect in her upper extremities or other muscle groups. MRI looks very normal with postsurgical changes but no impingement on any neural structures. The patient denies stress and anxiety. There is no physiologic explanation for the reported incontinence. 2: Migraine component. I will increase her Elavil to 50 mg at bedtime I would recommend avoiding narcotics, as well as muscle relaxants as feasible.
[2018-03-26] MEDS: Amitriptyline 25 MG Tablet 50 MG PO ×2 (17:29→21:44)
--- NOTE | 2018-03-26 18:30 | NURSING ---
PT INCONTINENT XLG AMOUNT URINE. BLADDER SCAN THEN FOR 126ML. DR OTERO @ [facility].
[2018-03-26 20:16] VITALS: BP 100/62; PULSE 62; RESP 16; TEMP 36.9; O2SAT 99
[2018-03-27 02:04] VITALS: BP 95/60; PULSE 56; RESP 14; TEMP 36.5; O2SAT 98
[2018-03-27] MEDS: Ketorolac 30 MG/ML Syringe IV ×2 (05:49→13:21)
[2018-03-27] MEDS: 0.9% NaCl Peripheral Flush Adult/Peds IV ×5 (05:49→23:20)
[2018-03-27 06:31] LABS: BUN 11 mg/dL (7-18); Creatinine, Serum 0.85 mg/dL (0.55-1.02); Glucose 88 mg/dL (74-106)
[2018-03-27 06:32] LABS: Anion Gap 7 (5-15); BUN/Creat Ratio 12.9 RATIO (10-20); Calcium,Total 8.5 mg/dL (8.5-10.1); Chloride 111 mmol/L (98-107); EST Glomerular Filtration Rate 80 mL/min (>60); Est Glom Filt Rate - Afr Amer 97 mL/min (>60); Estimated Creatinine Clearance 89.83 ml/min; Potassium 4.1 mmol/L (3.5-5.1); Sodium Level 145 mmol/L (136-145)
[2018-03-27 06:55] LABS: Absolute Lymphocyte Count 1.29 X10^3/ul (0.83-4.51); Absolute Neutrophil Count 0.8 X10^3/uL (2.0-7.7); Basophil# 0.02 X10^3/uL; Basophil% 0.7 % (0-1); Eosinophil# 0.22 X10^3/uL; Eosinophils% 8.2 % (0-5); Hematocrit 37.7 % (37-47); Hemoglobin 12.4 g/dl (12.0-15.0); Lymphocyte # 1.29 X10^3/ul (4.0); Lymphocyte % 48.3 % (19-41); Mean Corp Hgb Conc 32.9 g/gl (32-36); Mean Corpuscular Hgb 28.4 pg (27.0-32.0); Mean Corpuscular Volume 86.5 fL (81-99); Mean Platelet Vol. 9.3 fl (6.2-12.0); Monocyte% 11.2 % (0-10); Neutrophil # 0.84 X10^3/uL (2.7-7.7); Neutrophil % 31.6 % (47-70); Platelet Count 168 K/mm3 (150-450); Red Blood Count 4.36 M/mm3 (4.2-5.4); White Blood Count 2.7 K/mm3 (4.4-11.0)
[2018-03-27 06:58] LABS: Differential Indicated SCAN CRITERIA MET; POSITIVE COUNT NO; POSITIVE DIFFERENTIAL YES; POSITIVE MORPHOLOGY NO
[2018-03-27] MEDS: oxyCODONE 5 MG Tablet PO ×2 (08:32→15:37)
[2018-03-27] MEDS: Baclofen 10 MG Tablet PO ×3 (08:32→21:05)
[2018-03-27] MEDS: Ondansetron 4 MG/2 ML Vial IV ×2 (08:33→23:20)
[2018-03-27 08:49] VITALS: BP 103/69; PULSE 68; RESP 16; TEMP 36.3; O2SAT 97
[2018-03-27] MEDS: Enoxaparin 40 MG/0.4 ML Syringe SC (09:45)
[2018-03-27] MEDS: Famotidine 20 MG Tablet PO ×2 (09:45→21:05)
[2018-03-27] MEDS: Pregabalin 75 MG Capsule PO ×2 (09:48→21:05)
--- NOTE | 2018-03-27 13:29 | MRI_ITS ---
STUDY: MRI BRAIN WITH AND WITHOUT CONTRAST REASON FOR EXAM: Female, 37 years old. Weakness TECHNIQUE: Standardized multiplanar fat and water weighted pulse sequences were obtained. Gadavist 11 IV was administered for the contrast portion of the examination. COMPARISON: November 27, 2014 FINDINGS: Normal size of the ventricles and extra-axial spaces for the patient's age. Normal white matter tracts of the supratentorial brain. There is no evidence for recent intracranial ischemia or other cause of cytotoxic edema on diffusion weighted imaging (DWI). Normal bilateral basal ganglia. Normal thalami. There is no extra-axial fluid accumulation. Normal flow voids within the major intracranial circulation suggesting patency by spin echo criteria. Normal venous enhancement. There is no enhancing intra-axial or extra-axial abnormality. Normal sella turcica, pituitary gland, infundibular stalk, optic chiasm and hypothalamus. Normal tectal plate and pineal gland. Normal midbrain, mery and medulla. Normal cerebellum. Normal basal cisterns. Normal bilateral temporal bones. Normal bilateral internal auditory canals. No demonstrated orbital abnormality, within the constraints of a routine brain study. Normal visualized paranasal sinuses. Normal calvarium and skull base. Normal visualized soft tissue structures. Normal visualized upper cervical spine. MRI/Brain W/WO Contrast IMPRESSION: Normal unenhanced and enhanced MRI of the brain. Electronically Signed: Tomas Williamson MD at 18:48 EST , Service support ,
[2018-03-27 13:35] VITALS: BP 105/61; PULSE 76; RESP 16; TEMP 36.8; O2SAT 97
--- NOTE | 2018-03-27 14:20 | CASEMGMT ---
Addendum entered by Mishel Higuera 03/27/18 14:33: Pt is alert and orientated x4. Pt denied wanting additional resources at this time. Pt denied any issues or concerns. Original Note: Social Work Assessment Referral Date: 03/27/2018 Date of Assessment: 03/27/2018 Reason for consult: MH Informant: UMER Personal Status: SW met with pt to complete initial assessment. Pt siting in bed, has guest present in room. Pt gave this worker permission to speak to her in front of her guest. Pt states that she is currently living with her mom in a one story home. Pt states that she was previously independent with ADLs and is currently going to school for nursing at [employer] and will be graduating in January. Substance Abuse Hx: Pt denied any alcohol or drug abuse/use. Pt states she is a current everyday smoker and smokes about a quarter of a pack a day. Pt states she used to smoke almost 2 packs a day. Mental Health Hx: Pt states that she has a history of anxiety, PTSD, Depression and ADD. Pt states that she used to go to [facility] for counseling and the last time she went was last year. Pt states she isn't currently seeing a counselor and denied wanting resources for counseling. Pt states that she has a history of cutting and states that it has been a while since she cut. Pt states it was about a year ago that she last cut. Pt denied any history or current Suicidal/homicidal thoughts/plans/ideations. SW asked pt about her current coping skills. Pt states that she does her schoolwork and that helps her to cope. SW asked pt about needing any resources at discharge. Pt's mom states that pt will need bench for the tub and walker at discharge. UMER updated RN SANDY Will of this. Plan: Pt to discharge home once medically cleared Mishel Higuera LICENSED CLINICAL PSYCHOLOGIST, STAVE SAW OPERATOR
--- NOTE | 2018-03-27 14:32 | PCM.PN.HOSP ---
Patient Problems: Active and Suspected Problems Intractable back pain (Acute) Urinary incontinence (Acute) Subjective: Patient seen and examined. She still complains of spasms in both LEs. She had a few muscle spasms during review that were quite intense and caused her to cry. She also complained of a headache with associated blurred vision which she attributed to her migraines. Review of systems otherwise negative. Patient and her family are concerned that she may have multiple sclerosis. Patient states she went to her school website and put on his symptoms and he came up with a diagnosis of multiple sclerosis. They therefore want her to be screened for multiple sclerosis. Review of systems was otherwise negative. Labs and vitals reviewed. Vitals/I&O's: Vital Signs Temp Pulse Resp BP Pulse Ox 98.2 F 76 16 105/61 97 03/27/18 13:35 03/27/18 13:35 03/27/18 13:35 03/27/18 13:35 03/27/18 13:35 Oxygen Delivery Method Room Air Weight: 244 lb 4.8 oz Body Mass Index (BMI) 38.2 Intake and Output for Last 24 Hours 03/25/18 03/26/18 03/27/18 23:59 23:59 23:59 Intake Total 2184 / 2184 1250 / 1250 Balance 2184 / 2184 1250 / 1250 General: Alert, Oriented x3, Cooperative, - - looked uncomfortable due to the LE spasms HEENT: Atraumatic, PERRLA, EOMI, Normocephalic Oral: Moist Mucosa Neck: Supple, No JVD, Negative Carotid Bruits Lungs: Clear to auscultation, Normal air movement, No rhonchi, No wheeze, No rales Cardiovascular: Regular rate, Regular Rhythm, Normal S1, Normal S2, No murmurs Abdomen: Bowel Sounds Present, Soft, Non Tender, Non-Distended, No Hepato-splenomegaly Extremities: No clubbing, No cyanosis, No edema, No Calf Tenderness Skin: No rashes, No breakdown Musculoskeletal: No Tenderness to Palpation of Joints or Extremities, No Muscle Wasting; had several painful muscle spasms of her LEs during review, painful enough to make her cry Lymphatic: No Cervical, Supraclavicular, or Inguinal Adenopathy Neurological: Cranial nerves II-XII grossly intact, - - severe spams of LE muscles, power 4/5 in LEs, Psych/Mental Status: Alert and oriented to time, distressed due to pain from spasms place, person, mood and affect Laboratory Results 03/27/18 05:30: WBC 2.7 L, RBC 4.36, Hgb 12.4, Hct 37.7, MCV 86.5, MCH 28.4, MCHC 32.9, RDW 13.0, RDW Differential 40.0, Plt Count 168, MPV 9.3, Immature Gran % (Auto) 0.000, Neut % (Auto) 31.6 L, Lymph % (Auto) 48.3 H, [place] % (Auto) 11.2 H, Eos % (Auto) 8.2 H, Baso % (Auto) 0.7, Absolute Neuts (auto) 0.8 L, Absolute Lymphs (auto) 1.29, Total Counted Not Reportable 03/27/18 05:30: Sodium 145, Potassium 4.1, Chloride 111 H, Carbon Dioxide 27.0, Anion Gap 7, BUN 11, Creatinine 0.85, Estim Creat Clear Calc 89.83, Est GFR (MDRD) Af Amer 97, Est GFR (MDRD) Non-Af 80, BUN/Creatinine Ratio 12.9, Glucose 88, Calcium 8.5 Current Medications Al Hydroxide/Mg Hydroxide (Mylanta Ii) 30 ml PO Q6H PRN PRN PRN Reason: Gastric burning Amitriptyline HCl (Elavil) 50 mg PO QHS [facility] Last Admin: 03/26/18 21:44 Dose: 50 mg Baclofen (Lioresal) 10 mg PO TID PRN PRN PRN Reason: SPASMS Last Admin: 03/27/18 08:32 Dose: 10 mg Cyclobenzaprine HCl (Flexeril) 10 mg PO TID [facility] Last Admin: 03/27/18 13:21 Dose: 10 mg Enoxaparin Sodium (Lovenox) 40 mg SC DAILY@1000 [facility] Last Admin: 03/27/18 09:45 Dose: 40 mg Famotidine (Pepcid) 20 mg PO BID [facility] Last Admin: 03/27/18 09:45 Dose: 20 mg Hydralazine HCl (Apresoline Iv) 10 mg IV Q4H PRN PRN PRN Reason: SBP > 160 Hydromorphone HCl (Dilaudid Inj) 0.5 - 1 mg IV Q3H PRN PRN PRN Reason: SEVERE PAIN (6-10/10) Last Admin: 03/26/18 16:19 Dose: 0.5 mg Lorazepam (Ativan) 1 mg IV Q4H PRN PRN PRN Reason: severe muscle spasms Magnesium Hydroxide (Milk Of Magnesia) 30 ml PO DAILY PRN PRN PRN Reason: Constipation Nicotine (Nicoderm Cq (Pbkc)) 14 mg TRANSDERM. DAILY ARJUN Last Admin: 03/27/18 09:44 Dose: 14 mg Ondansetron HCl (Zofran) 4 mg IV Q8H PRN PRN PRN Reason: NAUSEA/VOMITING Last Admin: 03/27/18 08:33 Dose: 4 mg Oxycodone HCl (Oxyir) 5 - 10 mg PO Q4H PRN PRN PRN Reason: SEVERE PAIN (6-10/10) Last Admin: 03/27/18 08:32 Dose: 10 mg Pregabalin (Lyrica) 75 mg PO BID ARJUN Last Admin: 03/27/18 09:48 Dose: 75 mg Sodium Chloride () 5 - 15 ml IV UD PRN PRN Reason: SALINE FLUSH Last Admin: 03/27/18 13:24 Dose: 10 ml Temazepam (Restoril) 15 mg PO QHS PRN PRN PRN Reason: insomnia Medical Necessity - Tobacco Use Smoking Status: Current every day smoker Tobacco Use: Cigarettes Assessment/Plan All Active Problems Intractable back pain (Acute) Urinary incontinence (Acute) Ovarian cyst (Acute) 1. Acute on chronic back pain with new onset bladder and bowel incontinence still having LE spasms, which were intense enough to make her cry on baclofen. Incontinence is resolving. MRI showed no evidence of lumbar extruded disc fragment, spinal stenosis or nerve root displacement. Grade 1 anterolisthesis of L5 on S1 with moderately pronounced disc space height narrowing, post surgical decompression and fusion using pedicular screws and rods down from L4 down to S1. neurology on board; didnt think it was a neurologic problem and dont think there is any physiologic explanation for the reported incontinence patient and family are concerned about her possibly having MS; discussed with neurology. Will order MRI of brain with and without contrast. fall precautions on flexeril, baclofen and lyrica PT/OT on board 2. Migraines: on elavil 50mg at bedtime. WIll avoid narcotics. Per neurology recommendations, to avoid muscle relaxants. However patient has severe spasms and is not willing to discontinue muscle relaxants. 3. ADD: on concerta 3. GERD: on ranitidine. 4. Nicotine abuse: encourage cessation. 5. DVT prophylaxis: lovenox Code Visit Inpatient E&M: 48772 Subs Hosp L2
--- NOTE | 2018-03-27 14:37 | PN_ITS ---
Patient Problems: Active and Suspected Problems Intractable back pain (Acute) Urinary incontinence (Acute) Subjective: Patient seen and examined. She still complains of spasms in both LEs. She had a few muscle spasms during review that were quite intense and caused her to cry. She also complained of a headache with associated blurred vision which she attributed to her migraines. Review of systems otherwise negative. Patient and her family are concerned that she may have multiple sclerosis. Patient states she went to her school website and put on his symptoms and he came up with a diagnosis of multiple sclerosis. They therefore want her to be screened for multiple sclerosis. Review of systems was otherwise negative. Labs and vitals reviewed. Vitals/I&O's: Vital Signs Temp Pulse Resp BP Pulse Ox 98.2 F 76 16 105/61 97 03/27/18 13:35 03/27/18 13:35 03/27/18 13:35 03/27/18 13:35 03/27/18 13:35 Oxygen Delivery Method Room Air Weight: 244 lb 4.8 oz Body Mass Index (BMI) 38.2 Intake and Output for Last 24 Hours 03/25/18 03/26/18 03/27/18 23:59 23:59 23:59 Intake Total 2184 / 2184 1250 / 1250 Balance 2184 / 2184 1250 / 1250 General: Alert, Oriented x3, Cooperative, - - looked uncomfortable due to the LE spasms HEENT: Atraumatic, PERRLA, EOMI, Normocephalic Oral: Moist Mucosa Neck: Supple, No JVD, Negative Carotid Bruits Lungs: Clear to auscultation, Normal air movement, No rhonchi, No wheeze, No rales Cardiovascular: Regular rate, Regular Rhythm, Normal S1, Normal S2, No murmurs Abdomen: Bowel Sounds Present, Soft, Non Tender, Non-Distended, No Hepato- splenomegaly Extremities: No clubbing, No cyanosis, No edema, No Calf Tenderness Skin: No rashes, No breakdown Musculoskeletal: No Tenderness to Palpation of Joints or Extremities, No Muscle Wasting; had several painful muscle spasms of her LEs during review, painful enough to make her cry Lymphatic: No Cervical, Supraclavicular, or Inguinal Adenopathy Neurological: Cranial nerves II-XII grossly intact, - - severe spams of LE muscles, power 4/5 in LEs, Psych/Mental Status: Alert and oriented to time, distressed due to pain from spasms place, person, mood and affect Laboratory Results 03/27/18 05:30: WBC 2.7 L, RBC 4.36, Hgb 12.4, Hct 37.7, MCV 86.5, MCH 28.4, MCHC 32.9, RDW 13.0, RDW Differential 40.0, Plt Count 168, MPV 9.3, Immature Gran % (Auto) 0.000, Neut % (Auto) 31.6 L, Lymph % (Auto) 48.3 H, [place] % (Auto) 11.2 H, Eos % (Auto) 8.2 H, Baso % (Auto) 0.7, Absolute Neuts (auto) 0.8 L, Absolute Lymphs (auto) 1.29, Total Counted Not Reportable 03/27/18 05:30: Sodium 145, Potassium 4.1, Chloride 111 H, Carbon Dioxide 27.0, Anion Gap 7, BUN 11, Creatinine 0.85, Estim Creat Clear Calc 89.83, Est GFR (MDRD) Af Amer 97, Est GFR (MDRD) Non-Af 80, BUN/Creatinine Ratio 12.9, Glucose 88, Calcium 8.5 Current Medications Al Hydroxide/Mg Hydroxide (Mylanta Ii) 30 ml PO Q6H PRN PRN PRN Reason: Gastric burning Amitriptyline HCl (Elavil) 50 mg PO QHS [facility] Last Admin: 03/26/18 21:44 Dose: 50 mg Baclofen (Lioresal) 10 mg PO TID PRN PRN PRN Reason: SPASMS Last Admin: 03/27/18 08:32 Dose: 10 mg Cyclobenzaprine HCl (Flexeril) 10 mg PO TID [facility] Last Admin: 03/27/18 13:21 Dose: 10 mg Enoxaparin Sodium (Lovenox) 40 mg SC DAILY@1000 [facility] Last Admin: 03/27/18 09:45 Dose: 40 mg Famotidine (Pepcid) 20 mg PO BID [facility] Last Admin: 03/27/18 09:45 Dose: 20 mg Hydralazine HCl (Apresoline Iv) 10 mg IV Q4H PRN PRN PRN Reason: SBP > 160 Hydromorphone HCl (Dilaudid Inj) 0.5 - 1 mg IV Q3H PRN PRN PRN Reason: SEVERE PAIN (6-10/10) Last Admin: 03/26/18 16:19 Dose: 0.5 mg Lorazepam (Ativan) 1 mg IV Q4H PRN PRN PRN Reason: severe muscle spasms Magnesium Hydroxide (Milk Of Magnesia) 30 ml PO DAILY PRN PRN PRN Reason: Constipation Nicotine (Nicoderm Cq (Pbkc)) 14 mg TRANSDERM. DAILY [facility]JUN Last Admin: 03/27/18 09:44 Dose: 14 mg Ondansetron HCl (Zofran) 4 mg IV Q8H PRN PRN PRN Reason: NAUSEA/VOMITING Last Admin: 03/27/18 08:33 Dose: 4 mg Oxycodone HCl (Oxyir) 5 - 10 mg PO Q4H PRN PRN PRN Reason: SEVERE PAIN (6-10/10) Last Admin: 03/27/18 08:32 Dose: 10 mg Pregabalin (Lyrica) 75 mg PO BID [facility] Last Admin: 03/27/18 09:48 Dose: 75 mg Sodium Chloride () 5 - 15 ml IV UD PRN PRN Reason: SALINE FLUSH Last Admin: 03/27/18 13:24 Dose: 10 ml Temazepam (Restoril) 15 mg PO QHS PRN PRN PRN Reason: insomnia Medical Necessity - Tobacco Use Smoking Status: Current every day smoker Tobacco Use: Cigarettes Assessment/Plan All Active Problems Intractable back pain (Acute) Urinary incontinence (Acute) Ovarian cyst (Acute) 1. Acute on chronic back pain with new onset bladder and bowel incontinence * still having LE spasms, which were intense enough to make her cry * on baclofen. Incontinence is resolving. * MRI showed no evidence of lumbar extruded disc fragment, spinal stenosis or nerve root displacement. Grade 1 anterolisthesis of L5 on S1 with moderately pronounced disc space height narrowing, post surgical decompression and fusion using pedicular screws and rods down from L4 down to S1. * neurology on board; didnt think it was a neurologic problem and dont think there is any physiologic explanation for the reported incontinence * patient and family are concerned about her possibly having MS; discussed with neurology. Will order MRI of brain with and without contrast. * fall precautions * on flexeril, baclofen and lyrica * PT/OT on board 2. Migraines: on elavil 50mg at bedtime. * WIll avoid narcotics. Per neurology recommendations, to avoid muscle relaxants. * However patient has severe spasms and is not willing to discontinue muscle relaxants. 3. ADD: on concerta 3. GERD: on ranitidine. 4. Nicotine abuse: encourage cessation. 5. DVT prophylaxis: lovenox Code Visit Inpatient E&M: 66571 Subs Hosp L2
[2018-03-27 20:53] VITALS: BP 120/69; PULSE 80; RESP 16; TEMP 36.9; O2SAT 100
[2018-03-27] MEDS: Amitriptyline 25 MG Tablet 50 MG PO (21:05)
[2018-03-27] MEDS: Senna/Docusate Sodium 1 Tablet 2 TABLET PO (21:05)
[2018-03-28 05:35] VITALS: BP 106/60; PULSE 76; RESP 18; TEMP 36.9; O2SAT 95
[2018-03-28] MEDS: Baclofen 10 MG Tablet PO (05:37)
[2018-03-28 06:52] LABS: Absolute Lymphocyte Count 1.14 X10^3/ul (0.83-4.51); Absolute Neutrophil Count 2.9 X10^3/uL (2.0-7.7); Basophil# 0.02 X10^3/uL; Basophil% 0.4 % (0-1); Eosinophil# 0.22 X10^3/uL; Eosinophils% 4.5 % (0-5); Hematocrit 36.5 % (37-47); Hemoglobin 12.2 g/dl (12.0-15.0); Lymphocyte # 1.14 X10^3/ul (4.0); Lymphocyte % 23.4 % (19-41); Mean Corp Hgb Conc 33.4 g/gl (32-36); Mean Corpuscular Hgb 28.6 pg (27.0-32.0); Mean Corpuscular Volume 85.7 fL (81-99); Mean Platelet Vol. 9.5 fl (6.2-12.0); Monocyte# 0.58 X10^3/uL; Monocyte% 11.9 % (0-10); Neutrophil # 2.91 X10^3/uL (2.7-7.7); Neutrophil % 59.6 % (47-70); Platelet Count 171 K/mm3 (150-450); RBC Distribution Width CV 12.9 % (11.6-14.6); RBC Distribution Width SD 39.7 fl (35.1-43.9); Red Blood Count 4.26 M/mm3 (4.2-5.4); White Blood Count 4.9 K/mm3 (4.4-11.0)
[2018-03-28 07:03] LABS: POSITIVE COUNT NO; POSITIVE DIFFERENTIAL NO; POSITIVE MORPHOLOGY NO
[2018-03-28 07:04] VITALS: O2SAT 95
[2018-03-28 07:07] LABS: Anion Gap 7 (5-15); BUN 14 mg/dL (7-18); BUN/Creat Ratio 16.2 RATIO (10-20); Calcium,Total 8.4 mg/dL (8.5-10.1); Chloride 108 mmol/L (98-107); Creatinine, Serum 0.87 mg/dL (0.55-1.02); EST Glomerular Filtration Rate 79 mL/min (>60); Est Glom Filt Rate - Afr Amer 96 mL/min (>60); Estimated Creatinine Clearance 87.77 ml/min; Glucose 99 mg/dL (74-106); Potassium 3.9 mmol/L (3.5-5.1); Sodium Level 142 mmol/L (136-145)
--- NOTE | 2018-03-28 09:30 | DCINST_ITS ---
- Discharge Diagnoses Current Active Problems: Current Active and Chronic Problems Intractable back pain (Acute) Urinary incontinence (Acute) Chronic back pain (Chronic) Neuropathy (Chronic) GERD (gastroesophageal reflux disease) (Chronic) ADHD (Chronic) Obesity (BMI 30-39.9) (Chronic) You will use the following diet at home:: Cardiac Your food should be the consistency of: Regular Your liquids should be the consistency of: Regular/Thin Discharge Activity: Return to Normal Activity Weight Bearing Status: Weight bearing as tolerated Instructions: Migraines and Cluster Headaches, ED Muscle Pain Leg Cramps Allergies/Adverse Reactions: Allergies acetaminophen [From Vicodin] Allergy (Verified 03/25/18 20:05) Anaphylaxis hydrocodone bitartrate [From Vicodin] Allergy (Verified 03/25/18 20:05) Anaphylaxis latex Allergy (Verified 03/25/18 20:05) Anaphylaxis morphine Allergy (Verified 03/25/18 20:05) Chest tightness CANNOT BREATH prednisone Allergy (Verified 03/25/18 20:05) Anaphylaxis fluoxetine HCl [From Prozac] Adverse Reaction (Verified 03/25/18 20:05) Other SUICIDAL IDEATIONS tramadol Adverse Reaction (Verified 03/25/18 20:05) Upset Stomach venlafaxine HCl [From Effexor] Adverse Reaction (Verified 03/25/18 20:05) Other SEIZURE Medications to take at Discharge Ranitidine [Zantac] 150 mg PO BID 05/29/16 Baclofen [Lioresal] 10 mg PO TID PRN PRN 10/20/16 Diclofenac Sodium [Diclofenac Sodium ER] 100 mg PO BID 10/20/16 Methylphenidate HCl [Concerta] 18 mg PO DAILY 03/23/18 Pregabalin [Lyrica] 75 mg PO BID 03/23/18 Multivitamin with Minerals [Multiple Vitamin] 1 each PO DAILY 03/25/18 Amitriptyline HCl [Elavil] 50 mg PO QHS #60 tab 03/28/18 The following prescriptions were given: Amitriptyline HCl [Elavil] 50 mg PO QHS #60 tab Primary Care Physician: Mukund Dennis MD [Primary Care Provider] - Please follow up with your Primary Care Physician in: one week Test Results: Test results from this visit will be discussed in further detail at your follow- up appointment, if applicable. Please Follow Up With: Roddy Rizzo MD When: 1-2 weeks Proposed Discharge Date: 03/28/18
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
[2018-03-28 09:52] VITALS: BP 122/58; PULSE 83; RESP 16; TEMP 36.8; O2SAT 95
[2018-03-28] MEDS: Famotidine 20 MG Tablet PO (09:57)
[2018-03-28] MEDS: Senna/Docusate Sodium 1 Tablet 2 TABLET PO (09:57)
[2018-03-28] MEDS: Pregabalin 75 MG Capsule PO (09:57)
[2018-03-28] MEDS: Enoxaparin 40 MG/0.4 ML Syringe SC (09:58)
--- NOTE | 2018-03-28 13:33 | CASEMGMT ---
Pt to be discharged on this date. Front wheeled walker recommended by PT. Prescription obtained. Pt without preference for provider. [facility] corporate contacted regarding need. Prescription, H&P, DC summary, and face sheet faxed to them as requested. Delivery requested to [facility] room 303 prior to pt's discharge. Noted PT also recommended outpt PT upon discharge. Pt states she already has this scheduled to begin on Friday through her pain management physician. Noted OT recommended shower chair. Prescription given for tub bench. Instructed pt and her mother to take to provider of choice such as [facility] on Friday. Pt's mother enquired about insurance coverage of incontinence supplies. Prescription provided for incontinence supplies/depends. Pt denies any further needs. Amanda Serrato RN
[2018-03-28 14:14] VITALS: BP 111/57; PULSE 81; RESP 16; TEMP 36.7; O2SAT 95
== END 2018-03-28 14:36 | disposition home or self-care (01) ==
LOC: ED 22:55 → MS3 03-26 02:30
PROVIDERS: Admitting Provider Family Medicine; Emergency Provider Emergency Medicine; Family Provider Family Medicine; PCP Family Medicine; Visit Provider Student in an Organized Health Care Education/Training Program
DX: M62.830 Muscle spasm of back (principal); R32 Unspecified urinary incontinence; F90.9 Attention-deficit hyperactivity disorder, unspecified type; E66.9 Obesity, unspecified; K21.9 Gastro-esophageal reflux disease without esophagitis; G89.29 Other chronic pain; G62.9 Polyneuropathy, unspecified; F17.210 Nicotine dependence, cigarettes, uncomplicated; Z68.38 Body mass index [BMI] 38.0-38.9, adult; Z71.3 Dietary counseling and surveillance; Z79.899 Other long term (current) drug therapy; G43.909 Migraine, unspecified, not intractable, without status migrainosus; R15.9 Full incontinence of feces
CPT/HCPCS: 36415; 70553; 72158; 80048; 82550; 83735; 85025; 96372; 96374; 96375; 96376; 97162; 97166; 99218; 99283; 99406; A9585; J7030; A4216; G0378; J2405

== ENCOUNTER 2018-03-31 08:40 | Outpatient (RCR) | payer MEDICAID, SELFPAY ==
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
--- NOTE | 2018-04-22 16:53 | HP.PT.NRP ---
HP - Discharge Summary (1) - Patient Information MARY ELLEN HARRISON was seen in my office for initial evaluation on 03/31/18. The following Plan of Care was established for this patient: Initial Frequency: 2-3x /Week Initial Duration: 4-6 Weeks - Anticipated Interventions Patient/Client Instruction: Educate patient on: Condition, Plan of Care, Risk Factors, Benefits of Fitness Program For the Purpose of:: To improve self management Therapeutic Exercise to Include: Strength training, Body mechanics, Postural training, Gait and locomotor training, In an aquatic setting, Active ROM, Dynamic Lumbar Stabilization For the Purpose of:: To decrease pain, To decrease swelling/inflammation, To increase ROM, To improve muscle performance and motor function, To increase tolerance to activity/condition/position, To improve ability of physical actions for home/community/work/leisure, To improve gait and locomotor functions This patient was last seen in our office 03/31/18. Pertinent comments regarding their Physical therapy will appear below: This patient has not returned to Physical Therapy and is appropriate to return to MD for further follow-up as needed. At this point I will be discontinuing this patient from physical therapy. I would be happy to see this patient again in the future if found appropriate by the physician. Thank you! Kalyn Regan, PT, Cert MDT
== END 2018-03-31 19:00 | disposition home or self-care (01) ==
LOC: PT 08:40
PROVIDERS: Family Provider Family Medicine; PCP Family Medicine; Referring Provider Anesthesiology Pain Medicine; Visit Provider Anesthesiology Pain Medicine
DX: M96.1 Postlaminectomy syndrome, not elsewhere classified (principal); M51.26 Other intervertebral disc displacement, lumbar region; M12.9 Arthropathy, unspecified; M25.48 Effusion, other site; M54.16 Radiculopathy, lumbar region; M79.10 Myalgia, unspecified site; M47.817 Spondylosis without myelopathy or radiculopathy, lumbosacral region; M43.16 Spondylolisthesis, lumbar region
CPT/HCPCS: 97162

== ENCOUNTER 2019-04-12 07:00 | Day surgery (SDC) | payer MEDICAID, SELFPAY ==
[2019-04-12 07:24] VITALS: BP 112/71; PULSE 61; RESP 14; TEMP 36.5; O2SAT 100; BMI 37.8
[2019-04-12] MEDS: Lactated Ringers 1,000 ML 100 ML IV (07:39)
--- NOTE | 2019-04-12 08:38 | RAD_ITS ---
PROCEDURE: Right SI joint block. DATE OF EXAMINATION: April 12, 2019. INDICATION: Female, 38 years old. Right lower back pain. FLUOROSCOPY TIME (if supplied): (24.1 seconds) minutes/seconds Intraoperative imaging provided for right sacroiliac joint block. RAD/Fluoro Guided Needle Placement IMPRESSION: Intraoperative imaging provided for right sacroiliac joint block. Electronically Signed: Emre Samson, at 15:07 EST , Service support ,
--- NOTE | 2019-04-12 08:38 | RAD_ITS ---
PROCEDURE: Left SI joint injection. DATE OF EXAMINATION: April 12, 2019. INDICATION: Female, 38 years old. Left SI joint pain. FLUOROSCOPY TIME (if supplied): (1 second) minutes/seconds Intraoperative imaging provided for left SI joint injection. RAD/Fluoro Guided Needle Placement IMPRESSION: Intraoperative imaging provided for left SI joint injection. Electronically Signed: Emre Samson, at 15:52 EST , Service support ,
[2019-04-12] MEDS: MethylPREDNISolone Acetate 80 MG/ML Vial (08:43)
[2019-04-12] MEDS: Bupivacaine 0.25% 30 ML Vial (08:43)
--- NOTE | 2019-04-12 08:54 | OP.PCM_ITS ---
Report of Operation Date of Procedure: 04/12/19 Description of Surgical Findings:: PREOPERATIVE DIAGNOSES: 1. Sacroiliitis. 2. Sacroiliac joint dysfunction. POSTOPERATIVE DIAGNOSES: 1. Sacroiliitis. 2. Sacroiliac joint dysfunction. PROCEDURE PERFORMED: Bilateral sacroiliac joints steroid injection under fluoroscopy guidance. ANESTHESIA: MAC. BLOOD LOSS: Minimal. COMPLICATIONS: None. DESCRIPTION OF PROCEDURE: History and physical of today was reviewed. Risks and benefits of the procedure were explained. The patient understood and agreed to the procedure. Informed consent was obtained. IV inserted per routine pro tocol. The patient was taken to the operating room and placed in the prone position with a pillow positioned underneath the abdomen. The lower back and buttock area was prepped and draped in a sterile fashion using iodine x3. Under fluoroscopy guidance on an AP view, the bilateral SI joints were visualized. The skin and subcutaneous tissue was anesthetized with approximately 5 mL of 1% lidocaine using a 25-gauge regular needle. Under direct visualization with fluoroscopy at approximately 15-degree angle, using a 22-gauge 3-1/2-inch spinal needle, the needle was advanced via the skin. The tip of the needle was maneuvered and directed towards the inferior one-third of the posterior SI joint. Once the tip of the needle was at the vicinity of the joint, after negative aspiration for blood or CSF, a total of 2 mL of contrast was injected to confirm correct placement of the needle as well as cephalocaudal spread. Confirmation was obtained on AP as well as oblique view. After repeated negative aspiration and confirmation, a total of 8 mL of preservative-free 0.25% Marcaine with 80 mg of Depo-Medrol was injected in and around the SI joints in divided doses, the needle was then removed intact. The patient experienced no sign or symptoms of intrathecal or intravascular injection. The patient experienced no paresthesia. The procedure was completed without any apparent difficulty or any complications. The patient appeared to tolerate it well. ASSESSMENT AND PLAN: This is a 38-year-old female with sacroiliitis sacroiliac joint dysfunction status post bilateral sacroiliac joints steroid injection under fluoroscopic guidance, patient will continue her current medications, patient will follow approximately 2 weeks for reevaluation.
[2019-04-12 08:55] VITALS: BP 111/71; BP 112/71; PULSE 65; RESP 16; TEMP 36.6; O2SAT 100
[2019-04-12 09:00] VITALS: BP 112/71; BP 113/75; PULSE 68; RESP 16; O2SAT 100
[2019-04-12 09:05] VITALS: BP 112/71; BP 112/74; PULSE 60; RESP 16; O2SAT 100
[2019-04-12 09:10] VITALS: BP 111/74; BP 112/71; PULSE 61; RESP 16; TEMP 36.4; O2SAT 100
[2019-04-12 09:58] VITALS: BP 112/71
== END 2019-04-12 10:04 | disposition home or self-care (01) ==
LOC: SDC 07:00 → AC 07:01
PROVIDERS: PCP Family Medicine; Referring Provider Anesthesiology Pain Medicine; Visit Provider Anesthesiology Pain Medicine
PROC: 3E0U3BZ Introduction of Anesthetic Agent into Joints, Percutaneous Approach (ICD-10-PCS; CPT 64451; principal; 2019-04-12 08:25)
DX: M46.1 Sacroiliitis, not elsewhere classified (principal); M53.3 Sacrococcygeal disorders, not elsewhere classified; M96.1 Postlaminectomy syndrome, not elsewhere classified; M51.26 Other intervertebral disc displacement, lumbar region; M51.16 Intervertebral disc disorders with radiculopathy, lumbar region; M25.48 Effusion, other site; M47.817 Spondylosis without myelopathy or radiculopathy, lumbosacral region; M43.16 Spondylolisthesis, lumbar region; Z79.891 Long term (current) use of opiate analgesic; Z87.891 Personal history of nicotine dependence; Z79.899 Other long term (current) drug therapy
CPT/HCPCS: 01992; 27096; 76000; 77002; J7120

== ENCOUNTER 2019-04-12 16:59 | Emergency (ER) | payer MEDICAID, SELFPAY ==
[2019-04-12 07:24] VITALS: BMI 37.8
[2019-04-12 17:00] VITALS: BP 127/72; PULSE 81; RESP 14; TEMP 36.9; O2SAT 100; BMI 38.5
--- NOTE | 2019-04-12 17:18 | RAD_ITS ---
STUDY: X-RAY - SOFT TISSUE NECK REASON FOR EXAM: Female, 38 years old. PATIENT IS HAVING COUGHING AND FOREIGN BODY FEELING IN THROAT WITH LOTS OF PAIN IN THROAT. PATIENT STATES HX OF THYROID NODULES. TECHNIQUE: 2 view(s) of the neck were obtained. COMPARISON: None. FINDINGS: Normal visualized nasopharynx, oropharynx, hypopharynx. Normal epiglottis. Normal visualized subglottic tracheal air column. Normal prevertebral soft tissue structures. Normal visualized osseous structures. The soft tissue structures are unremarkable. RAD/Neck for Soft Tissue IMPRESSION: Normal x-ray soft tissue neck. Electronically Signed: Mukund Palmer MD at 19:02 EST Tel , Service support ,
--- NOTE | 2019-04-12 17:25 | ED.VIS.GEN ---
History of Present Illness Chief Complaint: Foreign Body Informant: Patient Onset: Today Context: Gradual Onset Timing: Intermittent Current Severity: Moderate Maximum Severity: Moderate Narrative: The patient presents with foreign body sensation in the throat. She states began last night and got worse today. She states that sometimes she feels like she has to cough and that she is choking. She denies any fevers or chills. She denies any change in voice. She denies any trouble laying flat. She does have a history of thyroid nodules and is scheduled for an ultrasound this week. She denies any weight loss or night sweats. Prior similar symptoms: No Recent Illness/Hospitalization: No Past Medical History - Allergies and Home Meds Allergies/Adverse Reactions: Allergies acetaminophen [From Vicodin] Allergy (Verified 04/12/19 17:04) Anaphylaxis hydrocodone bitartrate [From Vicodin] Allergy (Verified 04/12/19 17:04) Anaphylaxis latex Allergy (Verified 04/12/19 17:04) Anaphylaxis morphine Allergy (Verified 04/12/19 17:04) Chest tightness CANNOT BREATH prednisone Allergy (Verified 04/12/19 17:04) Anaphylaxis fluoxetine HCl [From Prozac] Adverse Reaction (Verified 04/12/19 17:04) Other SUICIDAL IDEATIONS tramadol Adverse Reaction (Verified 04/12/19 17:04) Upset Stomach venlafaxine HCl [From Effexor] Adverse Reaction (Verified 04/12/19 17:04) Other SEIZURE Primary Care Physician: Mukund Dennis MD [Primary Care Provider] - Prior records reviewed: Yes Past Medical History: - - Reviewed and confirmed with patient Surgical History: noncontributory, - - Hernia repair x4, cholecystectomy, lumbar back surgery with fusion and hardware, right wrist cyst removal, left foot cyst removal, hysterectomy with bilateral salpingo-oophorectomy, lateral tubal ligation, . Smoking Status: Former smoker - Family History Maternal Family History: Reports: - - Patient denies any marked maternal family history including heart disease, diabetes or cancer. Paternal Family History: Reports: - - Patient notes a paternal family history of cancer with history of heavy tobacco and alcohol usage concurrently, past. Review of Systems General: Denies: Chills, Fever, Sweats Eyes: Denies: Visual changes - bilaterally, Diplopia ENT: Reports: Sore throat. Denies: Rhinorrhea Cardiovascular: Denies: Chest pain, Palpitations Respiratory: Reports: Cough. Denies: Dyspnea, Dyspnea on exertion Gastrointestinal: Denies: Abdominal pain, Nausea, Vomiting, Diarrhea, Melena, Hematochezia Genitourinary: Denies: Dysuria, Hematuria, Frequency Musculoskeletal: Denies: Back pain, Extremity Pain Skin: Denies: Rash, Wounds Neurological: Denies: Headache, Weakness, Numbness Physical Exam Vital Signs/Narrative: Vital Signs Temp Pulse Resp BP Pulse Ox 04/12/19 17:00 98.4 F 81 14 127/72 H 100 Inital Vital Signs reviewed: Yes General: Well nourished, Well developed, No Acute Distress Head: Normocephalic, Atraumatic Eyes: Perrl, EOMI ENT: Moist mucous membranes, No rhinorrhea Neck: Supple, Nontender Cardiovascular: Regular rate, Regular rhythm, No murmurs Respiratory: No distress, CTA bilaterally, Chest nontender Abdomen: Soft, Nontender, Nondistended, Normal bowel sounds Back: Nontender, Normal Inspection Extremities: Nontender, No edema Skin: Normal color, No rash Neurological: Alert, Oriented x3, Cranial nerves II-XII grossly intact, Normal Strength, Normal Sensation Psychological: Normal affect, Normal Mood Diagnostic/Tx/Re-eval Clinical Impression(s) from Imaging Studies Soft Tissue Neck X-Ray 04/12/19 17:18 IMPRESSION: Normal x-ray soft tissue neck. Electronically Signed: Mukund Palmer MD at 19:02 EST Tel , Service support , Chest X-Ray 04/12/19 18:05 IMPRESSION: Normal x-ray examination of the chest. Electronically Signed: Fuad Wilder MD at 19:01 EST , Service support , - Medical Decision Making The patient does have evidence of uvulitis. There is no trismus or stridor. There is no evidence of retropharyngeal or peritonsillar abscess. Strep and flu were obtained which were negative. I also obtained lateral soft tissue neck and chest x-ray which were both negative. The patient does have anaphylaxis to steroids. I am hesitant to give her Decadron although I do feel that it would improve her symptoms. I am going to cover her for common bacterial causes. She will be discharged home. Impression 1. Uvulitis ED Disposition - Plan for ED Patient: Disposition: Home or Assisted Living Instructions: Uvulitis Prescriptions: Amox/Clavulanate Tablet [Augmentin Tablet] 875 mg PO Q12H #20 tab Prescription Printed Referrals: Mukund Dennis MD [Primary Care Provider] -
--- NOTE | 2019-04-12 18:05 | RAD_ITS ---
STUDY: X-RAY CHEST REASON FOR EXAM: Female, 38 years old. Coughing, possible foreign body TECHNIQUE: PA and lateral views of the chest. COMPARISON: 2013 FINDINGS: The lungs are clear and expanded. There is no demonstrated pleural abnormality. Normal size heart. Normal mediastinum and feliberto. Normal visualized pulmonary arteries. Normal visualized aortic arch and descending thoracic aorta. Normal visualized thoracic spine. Normal visualized ribs, clavicles, and shoulders. There is no demonstrated abnormality of the visualized soft tissue structures of the upper abdomen. RAD/Chest PA and Lateral IMPRESSION: Normal x-ray examination of the chest. Electronically Signed: Fuad Wilder MD at 19:01 EST , Service support ,
[2019-04-12 19:29] VITALS: BP 108/77; PULSE 62; RESP 15; O2SAT 97
== END 2019-04-12 19:30 | disposition home or self-care (01) ==
LOC: ED 17:39
PROVIDERS: Emergency Provider Emergency Medicine; PCP Family Medicine
DX: K12.2 Cellulitis and abscess of mouth (principal); M46.1 Sacroiliitis, not elsewhere classified; M53.3 Sacrococcygeal disorders, not elsewhere classified; M96.1 Postlaminectomy syndrome, not elsewhere classified; M51.26 Other intervertebral disc displacement, lumbar region; M51.16 Intervertebral disc disorders with radiculopathy, lumbar region; M25.48 Effusion, other site; M47.817 Spondylosis without myelopathy or radiculopathy, lumbosacral region; M43.16 Spondylolisthesis, lumbar region; Z87.891 Personal history of nicotine dependence; Z79.891 Long term (current) use of opiate analgesic; Z79.899 Other long term (current) drug therapy
CPT/HCPCS: 01992; 27096; 70360; 71046; 76000; 77002; 87804; 87880; 99282; J7120

== ENCOUNTER 2019-09-13 11:00 | Day surgery (SDC) | payer MEDICAID, SELFPAY ==
[2019-09-10 13:44] LABS: Probe Check PASS; Specimen Processing Control PASS
[2019-09-13] VITALS (9 sets, daily range): BP systolic 108–124; BP diastolic 69–83; PULSE 56–64; RESP 14–16; TEMP 36.4–36.7; O2SAT 96–100; BMI 41.2
--- NOTE | 2019-09-13 12:30 | RAD_ITS ---
STUDY: X-RAY - LUMBAR SPINE REASON FOR EXAM: Female, 38 years old. SPINAL CORD STIMULATOR INSERTION TECHNIQUE: 6: Intraoperative view(s) of the lumbar spine were obtained. COMPARISON: None FINDINGS: Intraoperative imaging provided for spinal cord stimulator insertion. The distal tip is at the T8-T9 level. RAD/Lumbar Spine 2 or 3 Views IMPRESSION: Intraoperative imaging provided for spinal cord stimulator insertion. Electronically Signed: Emre Samson, at 14:43 EDT , Service support ,
[2019-09-13] MEDS: Lactated Ringers 1,000 ML 100 ML IV (12:31)
[2019-09-13] MEDS: Cefazolin 2 GM in 0.9% Normal Saline 100 ML IV (12:58)
[2019-09-13] MEDS: Bupivacaine 0.25% 30 ML Vial (14:00)
[2019-09-13] MEDS: Bacitracin 500 UNITS/GM PACKET (14:10)
--- NOTE | 2019-09-13 15:28 | PCM.OPRPT ---
Report of Operation Date of Procedure: 09/13/19 Description of Surgical Findings:: PROCEDURES: 1. Spinal cord stimulator thoracolumbar percutaneous leads placement x2, spinal cord stimulator simple programming, intraoperative fluoroscopic interpretation PREOPERATIVE DIAGNOSES: Lumbosacral radiculopathy, lumbosacral degenerative disc disease, postlaminectomy syndrome of the lumbar spine POSTOPERATIVE DIAGNOSES: Lumbosacral radiculopathy, lumbosacral degenerative disc disease, postlaminectomy syndrome of the lumbar spine ANESTHESIA: MAC COMPLICATIONS: None BLOOD LOSS: Minimal Implanted device: Spinal cord stimulator lead [id number] lot number [id number], spinal cord stimulator lead [id number] lot number [id number] PROCEDURE IN DETAIL: History and physical today was reviewed. Risks and benefits of procedure explained. The patient understood, agreed to procedure, informed consent was obtained. IV inserted per routine protocol. The patient was taken to the operating room, placed in the prone position with a pillow positioned underneath the abdomen. A 2 g of Ancef IV piggyback was infused per anesthesia. The lower back area was prepped and draped in a sterile fashion using iodine x3 and an Ioban sheath. The C-arm was brought in position for AP view at the L1-2 vertebral bodies under direct visualization fluoroscopy on a true AP view the L1-2 interlaminar space was identified skin and subcutaneous tissue and size approximately 10 cc of a mix of 2% lidocaine and 0.25% Marcaine using a 25-gauge regular needle followed by a 25-gauge 3-1/2 inch spinal needle towards the interlaminar space at L1-2, the skin and subcutaneous tissue were then incised using an 11-gauge blade was then taken down to the skin and subcutaneous tissue using a 14-gauge 3-1/2 inch curved tip Touhy needle provided by the [employer] kit the needle was passed through the skin towards the interlaminar space at L1-2 and a paramedian approach the needle was then advanced under direct visualization fluoroscopy towards the interlaminar space at L1-2 [id number] technique was then carried to air towards the interlaminar space at L1-2once the tip of the needle was in the epidural space and loss of resistance was encountered to air and after confirmation of AP as well as lateral view of the spinal cord stimulator lead was then advanced under direct visualization fluoroscopy to be at the tip of the lead at T8 and the bottom of the lead around mid T10 after confirmation of AP as well as lateral view to confirm correct placement of the lead in the posterior compartment of the epidural, the above was then repeated on the right at the interlaminar space L1-2 and the lead was then advanced under direct visualization with fluoroscopy to the right of the above lead with the tip of the lead in the middle of T8 and the bottom at the middle of T10 space the lead was then connected to the external neurostimulator and patient was then awakened to stimulate and coverage of the painful area, once satisfactory coverage was then achieved the stylette of each needle was then removed and the skin and subcutaneous tissue on to the left of the paramedian needles was then taken anesthetized with a total of 10 cc of the previous mixture of 0.25% Marcaine and 2% lidocaine using a 25-gauge regular needle the spinal cord stimulator lead was then kept in place and the spinal cord stimulator Touhy needle was then removed under direct visualization of fluoroscopy and a life manner to confirm correct placement of the lead and successful withdrawal of the Touhy needle the spinal cord stimulator lead was then secured to the skin and fascia with a bi-wing anchor provided by [employer] kit the anchors were then secured to the skin and subcutaneous?fascia with a 2-0 nylon the spinal cord stimulator lead and bi-wing was then addressed in a sterile fashion using bacitracin and Tegaderm the external stimulator was then attached to the left lumbar area and secured to the patient back, hemostasis was then maintained during the procedure, patient was then returned into the supine position in a stable condition and returned to recovery in a stable condition patient experienced no signs or symptoms of intrathecal or intravascular injection patient experienced no paresthesia the procedure was completed without any apparent difficulty any complication the patient appeared to tolerate well, sensory as well as motor exam was unchanged from prior to the procedure ESTIMATED BLOOD LOSS: Minimal less than 10 mL ASSESSMENT AND PLAN: This is a 38-year-old female with Lumbosacral radiculopathy, lumbosacral degenerative disc disease, postlaminectomy syndrome of the lumbar spine status post, percutaneous spinal cord stimulator thoracolumbar leads placementX2 leads, spinal cord stimulator programming and intraoperative fluoroscopic interpretation patient will continue her current medications a prescription was provided to the patient for Keflex 500 mg 1 p.o. every 8 hours for 7 days postop instruction were given in writing to the patient as well as verbally to her mother, patient will follow approximately 3 to 4 days for reevaluation.
== END 2019-09-13 15:53 | disposition home or self-care (01) ==
LOC: SDC 11:00 → AC 11:01
PROVIDERS: Anesthesiology; PCP Family Medicine; Referring Provider Anesthesiology Pain Medicine; Visit Provider Anesthesiology Pain Medicine
PROC: (CPT 63650; principal; 2019-09-13 12:15)
DX: M51.17 Intervertebral disc disorders with radiculopathy, lumbosacral region (principal); M96.1 Postlaminectomy syndrome, not elsewhere classified; M51.26 Other intervertebral disc displacement, lumbar region; M43.16 Spondylolisthesis, lumbar region; M25.48 Effusion, other site; M46.1 Sacroiliitis, not elsewhere classified; M47.817 Spondylosis without myelopathy or radiculopathy, lumbosacral region; F41.9 Anxiety disorder, unspecified; F41.0 Panic disorder [episodic paroxysmal anxiety]; F32.9 Major depressive disorder, single episode, unspecified; Z11.59 Encounter for screening for other viral diseases; Z87.891 Personal history of nicotine dependence; Z79.899 Other long term (current) drug therapy
CPT/HCPCS: 63650 ×2; 95971; 72100; 76000; 87635; 94799; J7120; J2405; U0003

== ENCOUNTER 2019-11-15 11:22 | Day surgery (SDC) | payer MEDICAID, SELFPAY ==
[2019-09-13 11:51] VITALS: BMI 41.2
[2019-11-15] VITALS (10 sets, daily range): BP systolic 109–128; BP diastolic 67–80; PULSE 58–70; RESP 16; TEMP 36.4–37; O2SAT 95–100; BMI 40.9
[2019-11-15] MEDS: Bupivacaine 0.25% 30 ML Vial ×2 (12:08→14:13)
[2019-11-15] MEDS: Lactated Ringers 1,000 ML 100 ML IV ×2 (12:36→14:15)
--- NOTE | 2019-11-15 12:52 | RAD_ITS ---
STUDY: X-RAY - LUMBAR SPINE REASON FOR EXAM: Female, 39 years old. SPINAL CORD STIMULATOR FLUOROSCOPY TIME (if supplied): (6:47) minutes/seconds TECHNIQUE: 11 FLUORO IMAGES, 407 FLUORO SEC, 219.84mGy COMPARISON: None FINDINGS: Normal lumbar lordosis. There is no substantial scoliosis. There is a normal alignment of the vertebrae. Normal vertebral bodies and endplates. Normal disc space heights. The soft tissue structures are unremarkable. Spinal cord stimulator leads extending to T8-9 level RAD/Lumbar Spine 2 or 3 Views IMPRESSION: Spinal cord stimulator leads extending to T8-9 level Electronically Signed: Kerry Aguilar, at 12:05 EDT Tel , Service support ,
[2019-11-15] MEDS: Bacitracin 500 UNITS/GM PACKET (14:54)
--- NOTE | 2019-11-15 17:25 | OP.PCM_ITS ---
Report of Operation Date of Procedure: 11/15/19 Description of Surgical Findings:: Pre-Operative Diagnosis: Lumbosacral radiculopathy, lumbosacral degenerative disc disease, lumbosacral spinal stenosis, postlaminectomy syndrome of the lumbar spine Post-Operative Diagnosis: Lumbosacral radiculopathy, lumbosacral degenerative disc disease, lumbosacral spinal stenosis, postlaminectomy syndrome of the lumbar spine Surgery/Procedure Performed:: 1. Spinal cord stimulator thoracolumbar leads placement x2 #2 spinal cord stimulator Med[employer]onic intellus generator placement #3 spinal cord stimulator generator pocket creation at the left gluteal region #4 spinal cord stimulator simple programming, 5-intraoperative fluoroscopic interpretation Description of Surgical Findings:: PROCEDURES: 1. Spinal cord stimulator thoracolumbar leads placement x2 #2 spinal cord stimulator Medtronic intellus generator placement #3 spinal cord stimulator generator pocket creation at the left gluteal region #4 spinal cord stimulator simple programming 5-intraoperative fluoroscopic interpretation PREOPERATIVE DIAGNOSES: Lumbosacral radiculopathy, lumbosacral degenerative disc disease, lumbosacral spinal stenosis, postlaminectomy syndrome of the lumbar spine POSTOPERATIVE DIAGNOSES: Lumbosacral radiculopathy, lumbosacral degenerative disc disease, lumbosacral spinal stenosis, postlaminectomy syndrome of the lumbar spine ANESTHESIA: MAC COMPLICATIONS: None BLOOD LOSS: Minimal <25 CC Implanted device: Spinal cord stimulator lead [id number] lot number [id number], lead #2 lot number [id number], Medtronic spinal cord stimulator generator intellus serial number [id number] PROCEDURE IN DETAIL: History and physical today was reviewed. Risks and benefits of procedure explained. The patient understood, agreed to procedure, informed consent was obtained. IV inserted per routine protocol. The patient was taken to the operating room, placed in the prone position with a pillow positioned underneath the abdomen. A 2 g of Ancef IV piggyback was infused per anesthesia. The lower back and left gluteal area was prepped and draped in a sterile fashion using iodine x3. The C-arm was brought in position for AP view at the L1-2vertebral bodies under direct visualization fluoroscopy on a true AP view the L2-3 interlaminar space was identified skin and subcutaneous tissue and size approximately 10 cc of a mix of 2% lidocaine and 0.25% Marcaine using a 25- gauge regular needle followed by a 25-gauge 6 inch spinal needle towards the interlaminar space at L2-3, the skin and subcutaneous tissue were then anesthetized and using an 11-gauge blade was then taken down to the skin and subcutaneous tissue using a 14-gauge 6 inch Touhy needle provided by the [employer] kit the needle was passed through the skin towards the interlaminar space at L1-2 and a paramedian approach the needle was then advanced under direct visualization fluoroscopy towards the interlaminar space at L1-2 [id number] technique was then carried to air towards the interlaminar space at L3-4 once the tip of the needle was in the epidural space and loss of resistance was encountered to air and after confirmation of AP as well as oblique view of the spinal cord stimulator lead was then advanced under direct visualization fluoroscopy to be at the tip of the lead at T8 and the bottom of the lead around mid T10 after confirmation of AP as well as lateral view to confirm correct placement of the lead in the posterior compartment of the epidural space the previous procedure was then repeated to a level above at L2-3 interlaminar space the second lead was then inserted under direct visualization with fluoroscopy to be at the mid T8 and mid T11 area the leads were were then connected to the external neurostimulator and patient was then awakened to confirm satisfactory coverage of the painful area once satisfactory coverage was then achieved the stylette of each needle was then removed and the skin and subcutaneous tissue on to the left of the paramedian needles was then taken anesthetized with a total of 10 cc of the previous mixture of 0.25% Marcaine and 2% lidocaine using a 25-gauge regular needle the incision was then taken down through the skin and subcutaneous tissue towards the fascia making sure hemostasis was then maintained via cautery, the spinal cord stimulator leads were then passed through the above incision and secured using the bi-wing and sutured down with a 2-0 nylon to the fascia at that level the spinal cord stimulator leads were then tunneled via a tunneler provided by the [employer] kit towards the previously incised spinal cord stimulator battery at the left gluteal region skin and subcutaneous tissue were anesthetized with approximately 10 cc of a mix of 2% lidocaine and 0.25% Marcaine using a 25 gauge regular needle, skin and subcutaneous tissue was then taken down with the 11-gauge blade hemostasis was maintained with Bovie and direct pressure the incision was then taken down to the fascia and the battery was then secured with the 2-0 silk sutures that were the spinal cord stimulator leads the upper lead was then marked the new until spinal cord stimulator battery was then provided Via [employer] daphne kit the battery was then reattached of the spinal cord stimulator make ensure that the top lead is attached to the top position from 0-7 electrodes and the bottom from 8-15 electrodes once impedance was then checked to be in the proper average number the intellus battery was then inserted into the pocket and impedance with when checked again the pocket was then inspected to confirm hemostasis in place, the intellus battery was then secured to the fascia using a 2-0 silk to the upper and lower eyes of the battery confirming an upward writing of the intellus facing posterior, once complete confirmation the battery was then placed in the position and the the mid paramedian and the gluteal incisions were then closed primarily through a 3-0 Vicryl in a interrupted fashion followed by a 4-0 chromic to the skin, hemostasis was then maintained during the procedure the skin was then covered with a Steri-Strips and bacitracin patient was then returned into the supine position in a stable condition and returned to recovery in a stable condition patient experienced no signs or symptoms of intrathecal or intravascular injection patient experienced no paresthesia the procedure was completed without any apparent difficulty any complication the patient appeared to tolerate well, motor as well as sensory exam was unchanged from prior to the procedure. ESTIMATED BLOOD LOSS: Minimal less than 25 mL ASSESSMENT AND PLAN: This is a 39-year-old female with lumbosacral radiculopathy lumbosacral degenerative disc disease lumbosacral spinal stenosis, postlaminectomy syndrome of the lumbar spine, status post 1. Spinal cord stimulator thoracolumbar leads placement x2 #2 spinal cord stimulator Medtronic intellus generator placement #3 spinal cord stimulator generator pocket creation at the left gluteal region #4 spinal cord stimulator simple programming, 5-intraoperative fluoroscopic interpretation patient will continue her current medications a prescription was provided to the patient for Keflex 500 mg 1 p.o. every 8 hours for 7 days postop instruction were given in writing to the patient as well as verbally and in writing to her mother. the patient will follow approximately 1 week for reevaluation.
== END 2019-11-15 16:53 | disposition home or self-care (01) ==
LOC: SDC 11:23 → AC 11:52
PROVIDERS: Anesthesiology; PCP Family Medicine; Referring Provider Anesthesiology Pain Medicine; Visit Provider Anesthesiology Pain Medicine
PROC: (CPT 63685; principal; 2019-11-15 12:55)
DX: M51.17 Intervertebral disc disorders with radiculopathy, lumbosacral region (principal); M96.1 Postlaminectomy syndrome, not elsewhere classified; M48.07 Spinal stenosis, lumbosacral region; M51.26 Other intervertebral disc displacement, lumbar region; M25.48 Effusion, other site; M47.27 Other spondylosis with radiculopathy, lumbosacral region; M43.16 Spondylolisthesis, lumbar region; Z11.59 Encounter for screening for other viral diseases; F41.9 Anxiety disorder, unspecified; F32.9 Major depressive disorder, single episode, unspecified; Z87.891 Personal history of nicotine dependence; Z79.899 Other long term (current) drug therapy; Z79.891 Long term (current) use of opiate analgesic
CPT/HCPCS: 01936; 63650; 63685; 95971; 72100; 76000; 87635; C1778; C1820; C9803; J7120; J2405; U0003

== ENCOUNTER 2020-04-30 20:35 | Emergency (ER) | payer MEDICAID, SELFPAY ==
[2019-11-15 12:23] VITALS: BMI 40.9
[2020-04-30 20:36] VITALS: BP 132/77; PULSE 88; RESP 16; TEMP 36.6; O2SAT 98; BMI 43.3
--- NOTE | 2020-04-30 21:00 | CT_ITS ---
STUDY: CT BRAIN WITHOUT CONTRAST REASON FOR EXAM: Female, 39 years old. Fall RADIATION DOSAGE (If Supplied By Facility): CTDIvol = ( 44.99 ) mGy, DLP = ( 798.92 ) mGycm TECHNIQUE: Transaxial CT imaging of the brain was performed without administration of intravenous contrast material. Individualized dose optimization techniques were used for this CT. COMPARISON: 11/27/2014 FINDINGS: Normal soft tissue structures. Normal calvarium. Normal size ventricles and extra-axial spaces for the patient''s age. Normal white matter tracts of the cerebral hemispheres. Normal basal ganglia and thalami. Normal brainstem. Normal cerebellum. There is no intracranial hemorrhage. There are no findings of an acute ischemic infarction. Normal visualized paranasal sinuses. CT/Brain/Head without Contrast IMPRESSION: Normal unenhanced CT scan of the brain. Electronically Signed: Addy Montgomery DO at 22:17 EDT Tel [phone], Service support ,
--- NOTE | 2020-04-30 21:01 | CT_ITS ---
STUDY: CT CERVICAL SPINE WITHOUT CONTRAST REASON FOR EXAM: Female, 39 years old. Fall RADIATION DOSAGE (If Supplied By Facility): CTDIvol = ( 25.91 ) mGy, DLP = ( 522.55 ) mGycm TECHNIQUE: High resolution transaxial imaging was performed without contrast material. Sagittal and coronal images were reconstructed. Individualized dose optimization techniques were used for this CT. COMPARISON: None FINDINGS: Normal craniovertebral junction. Normal anterior atlantoaxial articulation. Normal odontoid process. Straightening of the cervical lordosis. Normal vertebral bodies and posterior osseous elements. C2-3: Normal endplates. Normal disc height and morphology. Normal central canal and intervertebral neuroforamina. C3-4: Normal endplates. Normal disc height and morphology. Normal central canal and intervertebral neuroforamina. C4-5: Normal endplates. Normal disc height and morphology. Normal central canal and intervertebral neuroforamina. C5-6: Normal endplates. Normal disc height and morphology. Normal central canal and intervertebral neuroforamina. C6-7: Normal endplates. Normal disc height and morphology. Normal central canal and intervertebral neuroforamina. C7-T1: Normal endplates. Normal disc height and morphology. Normal central canal and intervertebral neuroforamina. Normal visualized soft tissue structures. Probable hemangiomatous changes of T2. CT/Spine Cervical without Contras IMPRESSION: No acute bony injury of the cervical spine. Electronically Signed: Addy Montgomery DO at 22:30 EDT Tel [phone], Service support ,
--- NOTE | 2020-04-30 21:17 | RAD_ITS ---
STUDY: X-RAY - RIGHT ANKLE REASON FOR EXAM: Female, 39 years old. Fall TECHNIQUE: 3 view(s) of the ankle. COMPARISON: None. FINDINGS: Normal visualized distal tibia and fibula. Normal medial and lateral malleoli. Normal tibiotalar articulation and ankle mortise. Normal visualized talus and calcaneus. The visualized subtalar, talonavicular, calcaneocuboid and tarsal articulations are normal. The soft tissue structures are unremarkable. RAD/Ankle min 3 Views IMPRESSION: Normal x-ray examination of the ankle. Electronically Signed: Addy Montgomery DO at 23:07 EDT Tel [phone], Service support ,
--- NOTE | 2020-04-30 21:17 | RAD_ITS ---
STUDY: X-RAY - LUMBAR SPINE REASON FOR EXAM: Female, 39 years old. Fall TECHNIQUE: 3 view(s) of the lumbar spine were obtained. COMPARISON: None FINDINGS: Normal lumbar lordosis. There is no substantial scoliosis. Status post surgical fusion of L4-S1 with pedicle screws. Grade 1 spondylolisthesis at L5-S1. Normal vertebral bodies and endplates. Narrowed L5-S1 disc space. The soft tissue structures are unremarkable. A spinal stimulator is noted with electrodes extending to the thoracic region. RAD/Lumbar Spine 2 or 3 Views IMPRESSION: Status post surgical fusion of L4-S1 with pedicle screws. Grade 1 spondylolisthesis at L5-S1. Electronically Signed: Addy Montgomery DO at 23:06 EDT Tel [phone], Service support ,
[2020-04-30] MEDS: Ondansetron ODT 4 MG Tablet PO (22:17)
[2020-04-30] MEDS: HYDROmorphone 1 MG/ML Syringe IM (22:17)
[2020-04-30 22:19] VITALS: BP 129/64; PULSE 77; RESP 15; O2SAT 98
--- NOTE | 2020-04-30 22:31 | ED.VISSUMM ---
- ER Visit Summary Date of Service: 04/30/20 Chief Complaint: Fall History of Present Illness: The patient is a 39 F presenting after fall. Patient states she twisted her right ankle and fell down a flight of stairs. This occurred earlier today. She believes she hit her head but did not lose consciousness. She complains of lower back pain. She has been taking ibuprofen at home. She is in pain management for chronic back pain with Dr. Mariano. She complains of headache, neck pain, low back pain, right ankle pain. She denies other complaints. Physical Examination: Vitals are stable. Patient is afebrile. Alert no acute distress. HEENT exam is unremarkable. Neck is mild diffuse tenderness with no step-off Lungs are clear and equal bilaterally. Heart is regular rate and rhythm. Abdomen is soft nontender nondistended. Back: Right paraspinal lumbar muscle tenderness Extremities right lateral ankle tenderness with mild swelling, normal pulses Skin is warm and dry. No focal neurologic deficit. Normal strength and sensation Remainder of exam is unremarkable. Emergency Department Course and Treatment: Patient was given Dilaudid, Zofran IM. CT head shows normal unenhanced CT scan of the brain. CT cervical spine shows no acute bony injury of the cervical spine. Right ankle x-ray read by myself and radiology shows normal x-ray examination of the ankle. Lumbar x-ray shows status post surgical fusion of L4-S1 with pedicle screws. Grade 1 spondylolisthesis at L5-S1. Patient was given an Aircast and declined crutches. She will follow-up with her pain management physician. Advised return to ED for worsening complaints. Disposition: Discharge Impression: Status post fall, neck and lumbar strain, right ankle sprain This note was generated with [employer] dictation software. It may contain incorrect words, spelling, and punctuation that were not noted in review of the chart prior to signing ED Disposition - Plan for ED Patient: Instructions: ED Mechanical Fall Referrals: Sam Zhao MD [STAFF PHYSICIAN] - Mukund Dennis MD [Primary Care Provider] -
--- NOTE | 2020-04-30 23:25 | ED.DEP ---
ED Disposition - Plan for ED Patient: Instructions: ED Mechanical Fall Referrals: Mukund Dennis MD [Primary Care Provider] - Sam Zhao MD [STAFF PHYSICIAN] -
== END 2020-04-30 23:39 | disposition home or self-care (01) ==
LOC: ED 21:49
PROVIDERS: Emergency Provider Emergency Medicine; PCP Family Medicine
DX: S39.012A Strain of muscle, fascia and tendon of lower back, initial encounter (principal); S16.1XXA Strain of muscle, fascia and tendon at neck level, initial encounter; S83.91XA Sprain of unspecified site of right knee, initial encounter; W10.9XXA Fall (on) (from) unspecified stairs and steps, initial encounter; Y93.89 Activity, other specified; Y92.89 Other specified places as the place of occurrence of the external cause; Y99.8 Other external cause status
CPT/HCPCS: 70450; 72100; 72125; 73610; 96372; 99283; J2405

== ENCOUNTER 2020-09-21 19:35 | Emergency (ER) | payer MEDICAID, SELFPAY ==
[2020-09-21 19:37] VITALS: BP 114/78; PULSE 86; RESP 18; TEMP 36.4; O2SAT 94; BMI 41.0
[2020-09-21 19:44] VITALS: BP 114/78; PULSE 86; RESP 18; TEMP 36.4; O2SAT 94
--- NOTE | 2020-09-21 20:41 | EX.ED.DYSGE1 ---
HPI History of Present Illness Chief Complaint: Nausea/Vomiting Narrative Narrative: 39-year-old female presenting with nausea, vomiting, diarrhea as well as diffuse crampy abdominal pain. Patient states that he was exposed to the norovirus at work. She states one of the patients vomited on her. She has had nausea and vomiting for over 24 hours now. She denies fever, chills. Denies dysuria or hematuria. She states he has not been able to hold down any food or fluids. She has not had anything for nausea or pain prior to arrival. PFSH PFSH Home Medications baclofen 10 mg PO TID PRN PRN 10/20/16 [History Last Taken Unknown] multivitamin with minerals [Multiple Vitamin-Minerals] 1 ea PO DAILY 03/25/18 [History Last Taken Unknown] duloxetine 60 mg PO DAILY 09/13/19 [History Last Taken Unknown] hydroxyzine pamoate 25 mg PO TID PRN PRN 04/30/20 [History Last Taken Unknown] topiramate 25 mg PO QHS 04/30/20 [History Last Taken Unknown] amitriptyline 50 mg PO DAILY 09/21/20 [History Last Taken Unknown] nabumetone 75 mg PO BID 09/21/20 [History Last Taken Unknown] ondansetron HCl [Zofran] 4 mg PO Q8H PRN #14 tab 09/21/20 [Rx Last Taken Unknown] Allergy/AdvReac Type Severity Reaction Status Date / Time acetaminophen [From Vicodin] Allergy Anaphylaxis Verified 09/21/20 19:36 gluten Allergy Food Verified 09/21/20 19:36 Allergy hydrocodone bitartrate Allergy Anaphylaxis Verified 09/21/20 19:36 [From Vicodin] latex Allergy Anaphylaxis Verified 09/21/20 19:36 morphine Allergy Chest Verified 09/21/20 19:36 tightness prednisone Allergy Anaphylaxis Verified 09/21/20 19:36 fluoxetine HCl [From Prozac] AdvReac Other Verified 09/21/20 19:36 tramadol AdvReac Upset Verified 09/21/20 19:36 Stomach venlafaxine HCl AdvReac Other Verified 09/21/20 19:36 [From Effexor] Social History Smoking Status: Current some day smoker tobacco type: cigarettes ROS ROS ED Constitutional Constitutional ED: Denies chills or fever(s) Eyes Eyes: Denies blurry vision or diplopia ENT ENT ED: Denies rhinorrhea or sore throat Cardiovascular Cardiovascular: Denies chest pain or palpitations Respiratory/Chest Respiratory/Chest: Denies cough, dyspnea or sputum Gastrointestinal Gastrointestinal: Reports abdominal pain, diarrhea, nausea and vomiting; Denies constipation or melena Genitourinary Genitourinary ED: Denies dysuria or hematuria Musculoskeletal Musculoskeletal: Denies arthralgias or myalgias Integumentary Denies Abrasions or rash Neurologic Neurologic: Denies headache(s) or paresthesias EXAM Physical Exam Const Vital Signs: 09/21/20 19:37 09/21/20 19:44 09/21/20 23:00 Temperature 97.5 F L 97.5 F L 98.1 F Temperature Source Temporal Temporal Temporal Pulse Rate 86 86 90 Respiratory Rate 18 18 17 Blood Pressure 114/78 114/78 106/55 L Blood Pressure Mean 90 90 72 Pulse Ox 94 94 97 Oxygen Delivery Method Room Air Room Air Room Air Positive well nourished General Appearance ED: NAD HEENT Reports moist mucous membranes Negative for trauma Eyes PERRL and EOMs intact bilaterally Resp normal respiratory effort and clear to auscultation bilaterally Cardio regular rate and no murmurs GI non-distended GI Narrative: Generalized abdominal tenderness. No specific point tenderness. Abdomen is nonperitoneal. Auscultation: hypoactive bowel sounds Palpation: soft and tender Neuro oriented x3 and CN's II-XII intact bilaterally Sensorium / Orientation: alert Psych mental status grossly normal Skin no rashes or lesions noted and no wounds MDM MDM MDM Narrative Medical decision making narrative: Patient presenting with nausea, vomiting diarrhea after exposure to norovirus. Patient has diffuse abdominal cramping but no focal pain. Blood work today is consistent with a viral illness. She has leukopenia and lymphopenia. Renal function electrolytes are normal. Alk phos is slightly elevated but her LFTs are normal. Lipase is negative. Patient given a liter of IV fluids, Dilaudid, Zofran x2 and she feels much improved and request to go home at this time. Patient was given a prescription for Zofran counseled on bland diet tomorrow progressing her diet as tolerated. Impression: 1. Viral gastroenteritis 2. Exposure to norovirus Lab Data Attestation: I reviewed the patient's lab results. Labs: Laboratory Results - last 24 hr 09/21/20 09/21/20 20:05 20:05 WBC 3.2 L RBC 5.26 Hgb 14.8 Hct 44.4 MCV 84.4 MCH 28.1 MCHC 33.3 RDW Std Deviation 42.3 RDW Coeff of Trena 13.6 Plt Count 184 MPV 9.0 Immature Gran % (Auto) 0.300 Neut % (Auto) 39.8 L Lymph % (Auto) 37.6 [place] % (Auto) 17.6 H Eos % (Auto) 3.8 Baso % (Auto) 0.9 Absolute Neuts (auto) 1.3 L Absolute Lymphs (auto) 1.20 Nucleated RBC % 0 Sodium 139 Potassium 3.8 Chloride 107 Carbon Dioxide 26.0 Anion Gap 6 BUN 14 Creatinine 0.84 Estim Creat Clear Calc 89.17 Est GFR (MDRD) Af Amer 98 Est GFR (MDRD) Non-Af 81 BUN/Creatinine Ratio 16.8 Glucose 91 Calcium 8.8 Total Bilirubin 0.60 AST 19 ALT 26 Alkaline Phosphatase 120 H Total Protein 7.3 Albumin 3.9 Globulin 3.4 Albumin/Globulin Ratio 1.1 Lipase 89 Discharge Plan Triage Chief Complaint: Nausea/Vomiting ED Provider: Julio Cesar Kessler Dx/Rx/DC Orders Instructions: ED Gastroenteritis, Viral (Adult) Prescriptions: New ondansetron HCl [Zofran] 4 mg tablet 4 mg PO Q8H PRN (Reason: nausea and vomiting) Qty: 14 RF: 0 No Action baclofen 10 MG tablet 10 mg PO TID PRN PRN (Reason: Spasms) RF: 0 multivitamin with minerals [Multiple Vitamin-Minerals] 1 EACH tablet 1 ea PO DAILY RF: 0 duloxetine 60 MG capsule 60 mg PO DAILY RF: 0 hydroxyzine pamoate 25 MG capsule 25 mg PO TID PRN PRN (Reason: Anxiety) RF: 0 topiramate 25 MG capsule,sprinkle,ER 24hr 25 mg PO QHS RF: 0 nabumetone 750 mg tablet 75 mg PO BID RF: 0 amitriptyline 50 mg tablet 50 mg PO DAILY RF: 0 Primary Care Provider: Mukund Dennis Referrals: Mukund Dennis MD [Primary Care Provider] - Disposition Disposition: Home, Self Care
[2020-09-21 20:50] LABS: Absolute Neutrophil Count 1.3 X10^3/uL (2.0-7.7); Basophil# 0.03 X10^3/uL; Basophil% 0.9 % (0-1); Eosinophil# 0.12 X10^3/uL; Eosinophils% 3.8 % (0-5); Hematocrit 44.4 % (37-47); Hemoglobin 14.8 g/dL (12.0-15.0); Lymphocyte % 37.6 % (19-41); Mean Corp Hgb Conc 33.3 g/dL (32-36); Mean Corpuscular Hgb 28.1 pg (27.0-32.0); Mean Corpuscular Volume 84.4 fL (81-99); Monocyte# 0.56 X10^3/uL; Monocyte% 17.6 % (0-10); NRBC Flagged by Analyzer 0 % (0-5); Neutrophil # 1.27 X10^3/uL (2.7-7.7); Neutrophil % 39.8 % (47-70); Platelet Count 184 K/mm3 (150-450); RBC Distribution Width CV 13.6 % (11.6-14.6); RBC Distribution Width SD 42.3 fl (35.1-43.9); Red Blood Count 5.26 M/mm3 (4.2-5.4); White Blood Count 3.2 K/mm3 (4.4-11.0)
[2020-09-21 21:01] LABS: ALB/GLOB Ratio 1.1 RATIO (0.9-2.4); AST(SGOT) 19 U/L (15-37); Alanine Aminotransfer ALT/SGPT 26 U/L (13-56); Albumin, Serum 3.9 g/dL (3.2-5.0); Alkaline Phosphatase 120 U/L (45-117); Anion Gap 6 (5-15); BUN 14 mg/dL (7-18); BUN/Creat Ratio 16.8 RATIO (10-20); Calcium,Total 8.8 mg/dL (8.5-10.1); Chloride 107 mmol/L (98-107); Creatinine, Serum 0.84 mg/dL (0.55-1.02); EST Glomerular Filtration Rate 81 mL/min (>60); Est Glom Filt Rate - Afr Amer 98 mL/min (>60); Estimated Creatinine Clearance 89.17 ml/min; Globulin 3.4 g/dL (2.2-4.2); Glucose 91 mg/dL (74-106); Lipase 89 U/L (73-393); Potassium 3.8 mmol/L (3.5-5.1); Protein, Total 7.3 g/dL (6.4-8.2); Sodium Level 139 mmol/L (136-145)
[2020-09-21] MEDS: HYDROmorphone 0.5 MG/0.5 ML SYRINGE IV (21:15)
[2020-09-21] MEDS: Ondansetron 4 MG/2 ML Vial IV ×2 (21:15→22:37)
[2020-09-21] MEDS: 0.9% Normal Saline 1,000 ML 1000 ML IV (21:15)
[2020-09-21 23:00] VITALS: BP 106/55; PULSE 90; RESP 17; TEMP 36.7; O2SAT 97
== END 2020-09-21 23:38 | disposition home or self-care (01) ==
PROVIDERS: Emergency Provider Student in an Organized Health Care Education/Training Program; PCP Family Medicine
DX: A08.4 Viral intestinal infection, unspecified (principal); F17.210 Nicotine dependence, cigarettes, uncomplicated
CPT/HCPCS: 80053; 83690; 85025; 96361; 96374; 96375; 96376; 99283; J7030; A4216; J2405

== ENCOUNTER 2021-02-15 19:27 | Emergency (ER) | payer MEDICAID, SELFPAY ==
[2021-02-15 19:28] VITALS: BP 125/80; PULSE 85; RESP 18; TEMP 36.6; O2SAT 100; BMI 33.7
--- NOTE | 2021-02-15 19:54 | ED.VIS.FALL ---
HPI HPI - Fall History of Present Illness Chief Complaint: Fall Narrative Narrative: 40-year-old female presenting with right rib pain, lower back pain, neck pain. She states she was chasing a child and she ran down the stairs and slipped and fell on her right side. She then slid down the stairs. She denies head injury or LOC. She states her neck is a little tender on the left trapezial region. She does not have any difficulty with head turning. Patient is able to ambulate. She states this occurred last evening and she did use a lidocaine patch. She has not tried Tylenol. She cannot take ibuprofen because she had a recent weight loss surgery. She is in pain management with Dr. Mariano and this is where she gets a low-dose lidocaine patch. [facility] Medical History (Updated 02/15/21 @ 20:06 by García Gill) Anxiety Depression Nodule of left lung Nodule of right lung Home Medications baclofen 10 mg PO TID PRN PRN 10/20/16 [History Last Taken Unknown] Multiple Vitamin-Minerals 1 ea PO DAILY 03/25/18 [History Last Taken Unknown] duloxetine 60 mg PO DAILY 09/13/19 [History Last Taken Unknown] hydroxyzine pamoate 25 mg PO TID PRN PRN 04/30/20 [History Last Taken Unknown] topiramate 25 mg PO QHS 04/30/20 [History Last Taken Unknown] amitriptyline 50 mg PO DAILY 09/21/20 [History Last Taken Unknown] Allergy/AdvReac Type Severity Reaction Status Date / Time acetaminophen [From Vicodin] Allergy Anaphylaxis Verified 02/15/21 19:31 gluten Allergy Food Verified 02/15/21 19:31 Allergy hydrocodone bitartrate Allergy Anaphylaxis Verified 02/15/21 19:31 [From Vicodin] latex Allergy Anaphylaxis Verified 02/15/21 19:31 morphine Allergy Chest Verified 02/15/21 19:31 tightness prednisone Allergy Anaphylaxis Verified 02/15/21 19:31 fluoxetine HCl [From Prozac] AdvReac Other Verified 02/15/21 19:31 NSAIDS (Non-Steroidal AdvReac Other Verified 02/15/21 19:31 Anti-Inflamma tramadol AdvReac Upset Verified 02/15/21 19:31 Stomach venlafaxine HCl AdvReac Other Verified 02/15/21 19:31 [From Effexor] Surgical History (Updated 02/15/21 @ 20:06 by García Gill) H/O: hysterectomy History of weight loss surgery Previous back surgery Social History Smoking Status: Current some day smoker tobacco type: cigarettes ROS ROS ED Constitutional Constitutional ED: Denies chills, fever(s) or sweats Eyes Eyes: Denies blurry vision or change in vision ENT ENT ED: Denies ear pain or sore throat Cardiovascular Cardiovascular: Reports other Details: Right-sided rib pain ; Denies palpitations or racing heartbeat Respiratory/Chest Respiratory/Chest: Denies cough, dyspnea or sputum Gastrointestinal Gastrointestinal: Denies abdominal pain, constipation, diarrhea, nausea or vomiting Genitourinary Genitourinary ED: Denies dysuria, hematuria or urinary frequency Musculoskeletal Musculoskeletal: Reports back pain and neck pain; Denies arthralgias or myalgias Integumentary Denies abscess, Abrasions or rash Neurologic Neurologic: Denies headache(s), paresthesias or weakness Psychiatric Psychiatric: Denies anxiety, depression, suicidal ideation or suicidal thoughts Endocrine Endocrinology: Denies polydipsia or polyuria EXAM Physical Exam Const Vital Signs: 02/15/21 19:28 02/15/21 20:04 02/15/21 20:47 Temperature 97.8 F 98.4 F Temperature Source Temporal Pulse Rate 85 78 Respiratory Rate 18 14 Respiratory Effort Normal Respiratory Depth Normal Respiratory Pattern Normal Blood Pressure 125/80 H 132/62 H Blood Pressure Mean 95 Pulse Ox 100 97 Oxygen Delivery Method Room Air Room Air Positive well nourished General Appearance ED: NAD HEENT Reports normocephalic atraumatic Eyes PERRL and EOMs intact bilaterally Neck Neck Narrative: No midline spinal tenderness, forming, step-off. Tenderness palpation left cervical paraspinal musculature. This extends into the trapezius. Chest Wall Chest Narrative: Tenderness palpation of the right ribs approximately the level of rib 5 tender to palpation in the midaxillary line to the posterior axillary line. Equal symmetric breath sounds or chest wall rise. Resp normal respiratory effort and clear to auscultation bilaterally Cardio regular rate and regular rhythm Neuro oriented x3 and CN's II-XII intact bilaterally Sensorium / Orientation: alert Psych mental status grossly normal and thought process normal MDM MDM MDM Narrative Medical decision making narrative: 40-year-old female presenting with right rib pain and lower back pain after mechanical fall on stairs. She states she fell onto her side and slid down the stairs. There is no evidence of external trauma. She has tenderness to palpation diffusely over the lumbar spine as well as the right ribs. The right ribs have no crepitance, bruising, deformity. She has equal symmetric breath sounds and chest wall rise. There is no midline spinal deformity on the lumbar spine. Her cervical spine is nontender and she has some cervical paraspinal muscular tenderness. She does not have very much pain here. I did obtain images of the lumbar spine which on my interpretation shows no acute abnormality and the radiologist agree. Right rib series on my interpretation shows no acute fracture and there are no signs of infiltrate or pneumothorax. Radiologist does agree. Patient was given oxycodone while she was awaiting her results. Patient does have chronic pain and sees Dr. Mariano and she currently has an appointment to see him on Friday. I counseled her on conservative care until she can get back pain management. I do not think she needs a prescription for narcotics tonight. Impression: 1. Mechanical fall 2. Right rib contusion 3. Lumbar strain 4. Cervical strain Radiography Diagnostic Testing: Clinical Impression(s) from Imaging Studies Ribs w/Chest X-Ray 02/15/21 19:55 IMPRESSION: RIBS: Normal x-ray examination of the ribs. CHEST: Normal x-ray examination of the chest. Electronically Signed: Harry Castro MD at 20:42 EST Tel , Service support , Lumbar Spine X-Ray 02/15/21 20:11 IMPRESSION: No significant interval change. Electronically Signed: Harry Castro MD at 20:38 EST Tel , Service support , Discharge Plan Triage Chief Complaint: Fall ED Provider: Julio Cesar Kessler Dx/Rx/DC Orders Instructions: ED Back Sprain/Strain, ED Contusion, Rib, ED Fall Prevention Prescriptions: No Action baclofen 10 MG tablet 10 mg PO TID PRN PRN (Reason: Spasms) RF: 0 Multiple Vitamin-Minerals 1 EACH tablet 1 ea PO DAILY RF: 0 duloxetine 60 MG capsule 60 mg PO DAILY RF: 0 hydroxyzine pamoate 25 MG capsule 25 mg PO TID PRN PRN (Reason: Anxiety) RF: 0 topiramate 25 MG capsule,sprinkle,ER 24hr 25 mg PO QHS RF: 0 amitriptyline 50 mg tablet 50 mg PO DAILY RF: 0 Primary Care Provider: Mukund Dennis Referrals: Mukund Dennis MD [Primary Care Provider] - Disposition Disposition: Home, Self Care Discharge Date/Time: 02/15/21 20:48
--- NOTE | 2021-02-15 19:55 | RAD_ITS ---
STUDY: X-RAY - UNILATERAL RIBS ( RIGHT ) WITH CHEST REASON FOR EXAM: Female, 40 years old. Rib pain TECHNIQUE - RIBS: For view(s) of the ribs. TECHNIQUE - CHEST: Single frontal view of the chest. COMPARISON: None. FINDINGS - RIBS: Normal visualized ribs without a demonstrated fracture. FINDINGS - CHEST: Spinal stimulator leads are noted. The lungs are clear and expanded. There is no demonstrated pleural abnormality. Normal size heart. Normal mediastinum and feliberto. Normal visualized pulmonary arteries. Normal visualized aortic arch and descending thoracic aorta. Normal visualized thoracic spine. Normal visualized ribs, clavicles, and shoulders. There is no demonstrated abnormality of the visualized soft tissue structures of the upper abdomen. RAD/Ribs Uni Min 3V w/PA Chest IMPRESSION: RIBS: Normal x-ray examination of the ribs. CHEST: Normal x-ray examination of the chest. Electronically Signed: Harry Castro MD at 20:42 EST Tel , Service support ,
[2021-02-15] MEDS: oxyCODONE 5 MG Tablet PO (20:10)
--- NOTE | 2021-02-15 20:11 | RAD_ITS ---
STUDY: X-RAY - LUMBAR SPINE REASON FOR EXAM: Female, 40 years old. Back pain TECHNIQUE: 3 view(s) of the lumbar spine were obtained. COMPARISON: 04/30/2020 FINDINGS: Stable appearing lumbosacral hardware with anterolisthesis of L5 on S1 and multilevel degenerative disease. Reidentified spinal stimulator hardware. Vertebral body heights are preserved. Soft tissues demonstrate surgical sutures and clips within the abdomen. RAD/Lumbar Spine 2 or 3 Views IMPRESSION: No significant interval change. Electronically Signed: Harry Castro MD at 20:38 EST Tel , Service support ,
[2021-02-15 20:47] VITALS: BP 132/62; PULSE 78; RESP 14; TEMP 36.9; O2SAT 97
== END 2021-02-15 20:48 | disposition home or self-care (01) ==
PROVIDERS: Emergency Provider Student in an Organized Health Care Education/Training Program; PCP Family Medicine; Visit Provider Student in an Organized Health Care Education/Training Program
DX: S39.012A Strain of muscle, fascia and tendon of lower back, initial encounter (principal); W10.9XXA Fall (on) (from) unspecified stairs and steps, initial encounter; G89.29 Other chronic pain; S20.211A Contusion of right front wall of thorax, initial encounter; S16.1XXA Strain of muscle, fascia and tendon at neck level, initial encounter; F17.210 Nicotine dependence, cigarettes, uncomplicated; F32.A Depression, unspecified; Z79.899 Other long term (current) drug therapy; F41.9 Anxiety disorder, unspecified; Y93.02 Activity, running; Y92.9 Unspecified place or not applicable
CPT/HCPCS: 71101; 72100; 99283

== ENCOUNTER 2021-03-05 18:22 | Outpatient (CLI) | payer MEDICAID, SELFPAY ==
[2021-03-05 18:33] VITALS: BP 109/80; PULSE 80; RESP 16; TEMP 37.2; O2SAT 100; BMI 32.8
[2021-03-05] MEDS: 0.9% Saline Lock 10 ML Syringe IV (18:38)
[2021-03-05 19:08] VITALS: BP 99/69; PULSE 58; RESP 16; TEMP 36.9; O2SAT 98
[2021-03-05 20:04] VITALS: BP 114/76; PULSE 63; RESP 16; TEMP 36.9; O2SAT 98
== END 2021-03-05 23:59 | disposition home or self-care (01) ==
LOC: MS3OUT 18:22 → MS3 18:23
PROVIDERS: PCP Family Medicine; Referring Provider Nurse Practitioner Adult Health; Visit Provider Nurse Practitioner Adult Health
DX: Z23 Encounter for immunization (principal); U07.1 COVID-19
CPT/HCPCS: J7050; M0245; Q0245; A4216

== ENCOUNTER 2021-04-17 16:17 | Emergency (ER) | payer MEDICAID, SELFPAY ==
[2021-04-17 16:18] VITALS: BP 115/82; PULSE 68; RESP 15; TEMP 36.2; O2SAT 100; BMI 31.9
--- NOTE | 2021-04-17 16:29 | RAD_ITS ---
STUDY: XR Wrist Min 3 Views REASON FOR EXAM: Female, 40 years old. PAIN fall down stairs, pain TECHNIQUE: XR Wrist Min 3 Views COMPARISON: None FINDINGS: There are no acute findings of the visualized distal radius and ulna. There are no acute findings of the radiocarpal articulation. Normal distal radioulnar articulation. Normal carpal bones. Normal carpal articulations. There are no acute findings of the carpometacarpal articulation of the thumb. Normal second through fifth carpometacarpal articulations. There are no acute findings of the visualized metacarpal bones. The soft tissue structures are unremarkable. RAD/Wrist min 3 Views IMPRESSION: There are no acute findings of the wrist. Electronically Signed: James Kate MD at 17:22 EST ,
--- NOTE | 2021-04-17 16:29 | RAD_ITS ---
EXAM: XR THORACIC SPINE, 2 VIEWS CLINICAL INDICATION: trauma fall down stairs, pain TECHNIQUE: Frontal and lateral views of the thoracic spine. This report was created using [employer] report generation technology. COMPARISON: None. FINDINGS: VERTEBRAE: Mild dextroscoliosis of the thoracic spine. Preserved vertebral body height. No fracture. No spondylolisthesis. No significant facet arthropathy. DISC SPACES: Unremarkable. Disc spaces are maintained. TUBES, LINES AND DEVICES: Metallic leads in the spinal canal may suggest spinal stimulator leads. RAD/Thoracic Spine 2 Views IMPRESSION: Mild dextroscoliosis of the thoracic spine. Electronically Signed: James Kate MD at 17:22 EST ,
--- NOTE | 2021-04-17 16:29 | RAD_ITS ---
STUDY: X-RAY - LUMBAR SPINE REASON FOR EXAM: Female, 40 years old. LOW BACK PAIN trauma TECHNIQUE: XR Spine Lumbar 2 or 3 Views COMPARISON: None FINDINGS: Normal lumbar lordosis. There is no substantial scoliosis. There is a normal alignment of the vertebrae. Normal vertebral bodies and endplates. Normal disc space heights. There are multiple metallic clips in the right upper quadrant. This is consistent for a cholecystectomy. There is a left side sided subcutaneous implanted electronic device with leads extending into the spinal canal. This is likely an SCS (spinal cord stimulator). Spinal fixation hardware noted. The soft tissue structures are unremarkable. RAD/Lumbar Spine 2 or 3 Views IMPRESSION: There are no acute findings. Electronically Signed: James Kate MD at 17:21 EST ,
--- NOTE | 2021-04-17 16:30 | EDS_ITS ---
HPI History of Present Illness Chief Complaint: Lower Extremity Injury Detail of Chief Complaint: Fall with right upper extremity injury and back injury. Informant: patient Onset/Context/Timing Onset: Today and Hours Context: Sudden Onset Timing: Continuous Current Severity: Moderate Maximum Severity: Moderate Narrative Narrative: 32-year-old female is seen past medical history. States she was leaving her house she was going down steps she tripped over the dog's leash and landed on the sidewalk. Complain pain in her right hand and wrist. And her thoracic and lumbar spine. No LOC. She is on no blood thinners. Denies any neck pain. This occurred around 2:15 p.m. today. She denies any chest or abdominal pain. Prior similar symptoms: Yes Recent Illness/Hospitalization: No PFSH PFSH Medical History Anxiety Depression Nodule of left lung Nodule of right lung Home Medications baclofen 10 mg PO TID PRN PRN 10/20/16 [History Last Taken Unknown] Multiple Vitamin-Minerals 1 ea PO DAILY 03/25/18 [History Last Taken Unknown] duloxetine 60 mg PO DAILY 09/13/19 [History Last Taken Unknown] hydroxyzine pamoate 25 mg PO TID PRN PRN 04/30/20 [History Last Taken Unknown] topiramate 25 mg PO QHS 04/30/20 [History Last Taken Unknown] amitriptyline 50 mg PO DAILY 09/21/20 [History Last Taken Unknown] lidocaine [Lidoderm] 1 patch TOPICAL DAILY 03/05/21 [History Last Taken Unknown] Allergy/AdvReac Type Severity Reaction Status Date / Time gluten Allergy Food Verified 03/05/21 14:50 Allergy hydrocodone bitartrate Allergy Anaphylaxis Verified 03/05/21 14:50 [From Vicodin] latex Allergy Anaphylaxis Verified 03/05/21 14:50 morphine Allergy Chest Verified 03/05/21 14:50 tightness prednisone Allergy Anaphylaxis Verified 03/05/21 14:50 acetaminophen [From Vicodin] AdvReac Upset Verified 03/05/21 18:29 Stomach fluoxetine HCl [From Prozac] AdvReac SUICIDAL Verified 03/05/21 18:30 IDEATIONS NSAIDS (Non-Steroidal AdvReac Other Verified 03/05/21 18:30 Anti-Inflamma tramadol AdvReac Upset Verified 03/05/21 14:50 Stomach venlafaxine HCl AdvReac SEIZURE Verified 03/05/21 18:30 [From Effexor] Surgical History H/O: hysterectomy History of weight loss surgery Previous back surgery Social History Smoking Status: Former smoker ROS ROS ED ROS Narrative Denies recent illness. Review of Systems ROS Unobtainable: Denies due to encephalopathy Constitutional Constitutional ED: Denies fever(s) Eyes Eyes: Denies change in vision ENT ENT ED: Denies ear pain Cardiovascular Cardiovascular: Denies chest pain Respiratory/Chest Respiratory/Chest: Denies dyspnea Gastrointestinal Gastrointestinal: Denies abdominal pain Genitourinary Genitourinary ED: Denies dysuria Musculoskeletal Musculoskeletal: Denies myalgias Integumentary Denies rash Neurologic Neurologic: Denies headache(s) Psychiatric Psychiatric: Denies depression Endocrine Endocrinology: Denies polyuria Allergic/Immunologic Allergic/Immunologic ED: Denies urticaria EXAM Physical Exam Narrative Exam Narrative: 40-year-old female no acute distress. Vital signs stable afebrile. H EENT exam pupils round reactive light. No signs of facial trauma. Scalp nontender no hematomas. No lacerations. C-spine nontender. Trachea midline. Normal range of motion. Lungs clear to auscultation bilaterally. Heart regular rate and rhythm no murmur. Rate about 70. Chest wall nontender. Ribs nontender. Abdomen soft nontender. Pelvic girdle intact. Hips nontender. She has normal dorsi and plantarflexion of both feet and ankles. Normal flexion-extension of both hips and knees bilaterally. 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 The right wrist and hand are tender. There is mild swelling to the index, long and ring finger. No deformity. Skin intact. Wrist is also mildly tender. Forearm otherwise, elbow and upper arm are nontender. Back complains of tenderness along the thoracic and lumbar spine. There is a well-healed prior back surgical scar. Neurologically she is awake and alert with no focal motor deficits. Answering questions following commands. GCS of 15. Const Vital Signs: 04/17/21 16:18 Temperature 97.2 F L Temperature Source Temporal Pulse Rate 68 Respiratory Rate 15 Blood Pressure 115/82 H Blood Pressure Mean 93 Pulse Ox 100 Oxygen Delivery Method Room Air Positive well nourished, well developed and obese; Negative for cachectic, contractures or unkempt General Appearance ED: well developed and NAD; Negative for unkempt, cachectic, contractures, cyanotic, diaphoretic or pallor Nutritional Appearance: obese; Negative for cachectic HEENT Reports moist mucous membranes Negative for trauma or tenderness Eyes PERRL and EOMs intact bilaterally General Eye ED: Negative for pale conjunctiva or scleral icterus Neck no lymphadenopathy, supple and no JVD General: Negative for tenderness Chest Wall inspection of chest normal and palpation of chest normal Resp normal respiratory effort and clear to auscultation bilaterally Effort and Inspection: Negative for pain with movement Auscultation: Negative for rales, rhonchi or wheezes Cardio regular rate, regular rhythm, S1 normal heart sound, S2 normal heart sound and no murmurs Rate: Negative for tachycardic GI normal to inspection, nondistended, normoactive bowel sounds, non-tender, non- distended and no masses Inspection: Negative for abdominal distention Auscultation: normoactive bowel sounds Palpation: soft; Negative for tender, guarding or rebound tenderness present Back/Spine no CVA tenderness General Back: Negative for CVA tenderness Cervical Spine: Negative for cervical spine tenderness Thoracic Spine / Upper Back: thoracic spinal tenderness and paraspinal muscle tenderness Lumbar Spine / Lower Back: lumbar spinal tenderness Extremity normal to inspection Extremity Narrative: Except right wrist and hand tenderness. No gross bony deformity. General Extremety ED: Negative for edema or tenderness General Extremity: Negative for edema Neuro oriented x3, CN's II-XII intact bilaterally and no sensory deficits noted Sensorium / Orientation: alert; Negative for orientation impaired, lethargic or stuporous Motor Exam: strength 5/5 throughout; Negative for general weakness Psych mental status grossly normal Appearance: Negative for unkempt Attitude: No agitated Mood & Affect: Negative for depressed, anxious or tearful Skin no rashes or lesions noted and no wounds General Skin Exam: Negative for jaundice or pallor MDM MDM MDM Narrative Medical decision making narrative: 40-year-old female tripped over a dog leash and fell down 2-3 steps. Complaining of pain on her right wrist and hand. X- rays to be obtained. Also ordered thoracic and lumbar spine and x-rays to be obtained. She requested something for pain and was given 1 OxyIR due to multiple allergies. Repeat exam patient is doing well be discharged home. Ice all sore areas. Tylenol for pain. Radiography Diagnostic Testing: Right hand x-ray 3 views interpreted by myself no acute abnormality. No fracture nor dislocation. Right wrist x-ray 3 views interpreted by myself no acute abnormality. No fracture nor dislocation. Thoracic spine x-ray 2 views interpreted by myself insert lower fracture see me. Lumbar spine x-ray 2 views interpreted by myself no fracture seen. Old blood work was ordered surgery with hardware in place. Discharge Plan Triage Chief Complaint: Lower Extremity Injury ED Provider: Ramirez Menchaca Dx/Rx/DC Orders Clinical Impression: Fall, Sprain of right wrist, Contusion of hand, Back contusion Instructions: ED Hand Contusion, ED Back Contusion, ED Wrist Sprain Prescriptions: No Action baclofen 10 MG tablet 10 mg PO TID PRN PRN (Reason: Spasms) RF: 0 Multiple Vitamin-Minerals 1 EACH tablet 1 ea PO DAILY RF: 0 duloxetine 60 MG capsule 60 mg PO DAILY RF: 0 hydroxyzine pamoate 25 MG capsule 25 mg PO TID PRN PRN (Reason: Anxiety) RF: 0 topiramate 25 MG capsule,sprinkle,ER 24hr 25 mg PO QHS RF: 0 amitriptyline 50 mg tablet 50 mg PO DAILY RF: 0 lidocaine [Lidoderm] 5 % Adhesive Patch,Medicated 1 patch TOPICAL DAILY RF: 0 Primary Care Provider: Mukund Dennis Referrals: Mukund Dennis MD [Primary Care Provider] - 1 Week if not improving Activity Restrictions/Additional Instructions: Ice to all sore areas to decrease pain and inflammation. Elevate your hand and wrist to decrease pain and swelling. Ice to your back to decrease swelling and hot shower on your back to relax the muscles. Tylenol for pain. Disposition Disposition: Home, Self Care
[2021-04-17] MEDS: oxyCODONE 5 MG Tablet PO (16:47)
--- NOTE | 2021-04-17 16:50 | RAD_ITS ---
STUDY: XR Hand Min 3 Views REASON FOR EXAM: Female, 40 years old. PAINfall down stairs, pain TECHNIQUE: XR Hand Min 3 Views RIGHT COMPARISON: None. FINDINGS: Normal radiocarpal articulation. Normal distal radioulnar joint. Normal visualized carpal bones. Normal carpal articulations Normal carpometacarpal articulation of the thumb. Normal second through fifth carpometacarpal joints. Normal metacarpi. Normal metacarpophalangeal joint of the thumb. Normal interphalangeal joint of the thumb. Normal proximal and distal phalanges of the thumb. Normal metacarpophalangeal joints of the second through fifth fingers. Normal proximal and distal interphalangeal joints of the second through fifth fingers. Normal phalanges of the second through fifth fingers. The soft tissue structures are unremarkable. RAD/Hand Min 3 Views IMPRESSION: There are no acute findings. Electronically Signed: James Kate MD at 17:21 EST Reading Location ID and State: [facility] / [place] , Service support ,
[2021-04-17 17:22] VITALS: PULSE 72; RESP 15; O2SAT 98
== END 2021-04-17 17:23 | disposition home or self-care (01) ==
PROVIDERS: Emergency Provider Emergency Medicine; PCP Family Medicine; Visit Provider Emergency Medicine
DX: S63.91XA Sprain of unspecified part of right wrist and hand, initial encounter (principal); S60.221A Contusion of right hand, initial encounter; S20.229A Contusion of unspecified back wall of thorax, initial encounter; E66.9 Obesity, unspecified; Z87.891 Personal history of nicotine dependence; W19.XXXA Unspecified fall, initial encounter
CPT/HCPCS: 72070; 72100; 73110; 73130; 99283